=== PATIENT | male | born 1975 | race Caucasian/White ===

== ENCOUNTER 2018-03-12 10:38 | Inpatient (IN) | payer OTHER ==
[2018-03-12 14:12] VITALS: BMI 32.1
--- NOTE | 2018-03-12 14:20 | PN ---
S Progress Note Note: during admission pt appears very lethargic, sluggish, unable to keep his eyes open, slurred speech. Pt will be evaluated at [place] ED, report given to Dr. Miranda for evaluation. BP 130/60 pulse 123, temp 99.5. If pt is cleared by MD at [place], pt may return for detox treatment.
--- NOTE | 2018-03-12 23:59 | HP ---
"CIWA Score Nausea/Vomitin-Mild Nausea/No Vomiting Muscle Tremors: 4-Moderate,w/Arms Extend Anxiety: 4-Mod. Anxious/Guarded Agitation: 3 Paroxysmal Sweats: 3 (Increased facial moisture) Orientation: 1-Uncertain about Date Tacttile Disturbances: 0-None Auditory Disturbances: 0-None Visual Disturbances: 0-None Headache: 0-None Present CIWA-Ar Total Score: 16 - Admission Criteria [facility]ASAS Guidelines: Admission for Medically Managed Detox: Requires at least one of the followin. CIWA greater than 12 2. Seizures within the past 24 hours 3. Delirium tremens within the past 24 hours 4. Hallucinations within the past 24 hours 5. Acute intervention needed for co occurring medical disorder 6. Acute intervention needed for co occurring psychiatric disorder 7. Severe withdrawal that cannot be handled at a lower level of care (continued vomiting, continued diarrhea, abnormal vital signs) requiring intravenous medication and/or fluids 8. Patient presents the following: CIWA greater than 12 (Patient returns after being monitored in ED for acute alcohol intoxication.) Admission Criteria Met: Admission criteria met Admission ROS [facility] Chief Complaint: Here for alcohol and heroin withdrawal. Allergies/Adverse Reactions: Allergies Allergy/AdvReac Type Severity Reaction Status Date / Time No Known Allergies Allergy Verified 03/12/18 15:49 History of Present Illness: Patient returns from ED to [facility] for detox. Patient originally came for alcohol and opiate detox. DISK RECOATER pulled and noted that patient is currently on prescribed Suboxone. Patient states willing to stay on Suboxone and complete alcohol detox. Alcohol use began at age 7. Nicotine use began at age 13. Heroin use began at age 14. Relapsed. Using IVDU. Denies sharing needles or works. Denies overdose hx. Will admit for alcohol withdrawal symptoms and provide alcohol detox.. Will prescribe Suboxone , based on DISK RECOATER, but suggest a re-confirmation of dose / [facility] ([phone]) Hx mental health issues and on medications for bipolar, depression, and anxiety and on medications. Denies thoughts of harming self or others. Search Terms: Merritt Boyce, 1975 Search Date: 03/13/2018 12:57:07 AM The Drug Utilization Report below displays all of the controlled substance prescriptions, if any, that your patient has filled in the last twelve months. The information displayed on this report is compiled from pharmacy submissions to the Department, and accurately reflects the information as submitted by the pharmacies. This report was requested by: Amber Dc | Reference #: [id number] Others' Prescriptions Patient Name: Merritt Boyce Date: 1975 Address: [address] [place] [address] Sex: Male Rx Written Rx Dispensed Drug Quantity Days Supply Prescriber Name 02/22/2018 02/22/2018 suboxone 8 mg-2 mg sl film 30 30 Jurgen Kapadia MD 01/25/2018 01/26/2018 suboxone 8 mg-2 mg sl film 30 30 Jasiel Parmar MD 12/28/2017 12/28/2017 diphenoxylate-atropine 2.5-0.025 mg tablet 40 10 Jasiel Parmar MD Exam Limitations: No Limitations - Ebola screening Have you traveled outside of the country in the last 21 days: No Have you had contact with anyone from an Ebola affected area: No Have you been sick,other than usual withdrawal symptoms: No Do you have a fever: No - Review of Systems Constitutional: Chills, Diaphoresis, Changes in sleep (Difficulty falling and staying asleep. Uses Trazodone) EENT: reports: Nose Congestion Respiratory: reports: No Symptoms reported Cardiac: reports: No Symptoms Reported GI: reports: Nausea, Abdominal cramping : reports: Other (Slow urination/hesitentcy. Denies burning, pain, blood w/ urination) Musculoskeletal: reports: Back Pain (Chronic achy, and sharp back pain x years. No pain at this time.), Other (Generalized bone pain.) Integumentary: reports: Bruising (on both hands r/t injection drug use. Hands are painful 2/10.) Neuro: reports: Tingling (In fingertips.), Tremors Endocrine: reports: Increased Thirst Hematology: reports: No Symptoms Reported Psychiatric: reports: Judgement Intact, Agitated, Anxious, Depressed (Denies thoughts of harming self or others.) Patient History - Patient Medical History Hx Asthma: No Hx Chronic Obstructive Pulmonary Disease (COPD): No Hx Cardiac Disorders: No Hx Hypertension: No Hx Seizures: No Hx Diabetes: No Hx Gastrointestinal Disorders: No Hx Genitourinary Disorders: No Hx Sexually Transmitted Disorders: No Hx Renal Disease (ESRD): No Hx Human Immunodeficiency Virus (HIV): No (2018) - Patient Surgical History Past Surgical History: No - PPD History Previous Implant?: Yes Documented Results: Negative w/o proof Implanted On Prior [facility] Admission?: Yes PPD to be Administered?: Yes - Smoking Cessation Smoking history: Current every day smoker Have you smoked in the past 12 months: Yes Aproximately how many cigarettes per day: 20 Hx Chewing Tobacco Use: No Initiated information on smoking cessation: Yes 'Breaking Loose' booklet given: 03/13/18 - Substance & Tx. History Hx Alcohol Use: Yes Hx Substance Use: Yes Substance Use Type: Alcohol, Cocaine, Heroin Hx Substance Use Treatment: Yes (detox, rehab, Currently on Suboxone) - Substances Abused Alcohol Route: Oral Frequency: Daily Amount used: 22 CANS BEER Age of first use: 7 Date of Last Use: 03/12/18 Heroin Route: Injection Frequency: Daily Amount used: 16 BAGS Age of first use: 14 Date of Last Use: 03/12/18 Admission Physical Exam S - Vital Signs Vital Signs: Vital Signs - 24 hr 03/12/18 14:06 Temperature 99.5 F Pulse Rate 123 H Respiratory 18 Rate Blood Pressure 132/60 - Physical General Appearance: Yes: Mild Distress, Tremorous, Sweating, Anxious HEENTM: Yes: EOMI, Hearing grossly Normal, Normocephalic, HAROLDO (Pupils = 2 mm), Pharynx Normal Respiratory: Yes: Lungs Clear, Normal Breath Sounds, No Respiratory Distress Neck: Yes: No masses,lesions,Nodules, Supple Breast: Yes: Breast Exam Deferred Cardiology: Yes: Regular Rhythm, S1, S2, Tachycardia Abdominal: Yes: Soft, Increased Bowel Sounds, Protuberent (Increased abdominal adiposity) Genitourinary: Yes: Hesitency Back: Yes: Normal Inspection Musculoskeletal: Yes: full range of Motion, Gait Steady Extremities: Yes: Normal Capillary Refill, Normal Range of Motion, Tremors Neurological: Yes: bus monitor II-XII NML intact, Alert, Motor Strength 5/5, Normal Mood /Affect Integumentary: Yes: Normal Color, Dry, Warm, Other (increased erythema, warmth and swelling of dorsum of both hands. Radial pulses (+).) Lymphatic: Yes: Within Normal Limits - Diagnostic (1) Alcohol dependence with uncomplicated withdrawal Current Visit: Yes Status: Acute (2) Opioid dependence on agonist therapy Current Visit: Yes Status: Chronic Comment: On Suboxone and relapsed w/ illicit opiates (3) Nicotine dependence, uncomplicated Current Visit: Yes Status: Acute Qualifiers: Nicotine product type: cigarettes Qualified Code(s): F17.210 - Nicotine dependence, cigarettes, uncomplicated (4) Cellulitis Current Visit: Yes Status: Acute Qualifiers: Site of cellulitis: extremity Site of cellulitis of extremity: upper extremity Laterality: unspecified laterality Qualified Code(s): L03.119 - Cellulitis of unspecified part of limb Comment: Cellulitis dorsum of both hands Cleared for Admission [facility] - Detox or Rehab [facility] Level of Care: Medically Managed Detox Regimen/Protocol: Librium S Breath Alcohol Content Breath Alcohol Content: 0 Urine Drug Screen - Results Drug Screen Negative: No Urine Drug Screen Results: THC-Marijuana, OPI-Opiates, AMP-Amphetamines, MET- Methamphetamine, MDMA-Ecstasy, BZO-Benzodiazepines, MTD-Methadone, FEN-Fentanyl , BUP-Suboxone"
[2018-03-13] MEDS ORDERED: chlordiazePOXIDE HCL 25 MG CAPSULE PO ONE (00:58)
[2018-03-13] MEDS ORDERED: ACETAMINOPHEN 325 MG TABLET (FP) PO PRN (00:58)
[2018-03-13] MEDS ORDERED: LOPERAMIDE HCL 2 MG CAPSULE PO PRN (00:58)
[2018-03-13] MEDS ORDERED: MAGNESIUM HYDROX 2400MG/30ML ORAL SUSPENSION 30 ML CUP PO PRN (00:58)
[2018-03-13] MEDS ORDERED: MAGNESIUM CITRATE 300 ML BOTTLE PO PRN (00:58)
[2018-03-13] MEDS ORDERED: P-EPHED 60MG/TRIPROLIDI 2.5MG TABLET PO PRN (00:58)
[2018-03-13] MEDS ORDERED: chlordiazePOXIDE HCL 25 MG CAPSULE PO PRN (00:58)
[2018-03-13] MEDS ORDERED: MENTHOL/PHENOL 1 EACH UD MM PRN (00:58)
[2018-03-13] MEDS ORDERED: MAG HYDROX/AL HYDROX/SIMETH 30 ML UNIT-DOSE CUP PO PRN (00:58)
[2018-03-13] MEDS ORDERED: IBUPROFEN 400 MG TABLET (FP) PO PRN (00:58)
[2018-03-13] MEDS ORDERED: NICOTINE POLACRILEX 2 MG GUM BC PRN (00:58)
[2018-03-13] MEDS: chlordiazePOXIDE HCL 25 MG CAPSULE PO SCH ×4 (06:24→22:21)
[2018-03-13] MEDS: PRENATAL VITAMINS W/ FOLIC ACID TABLET (FP) PO SCH (11:56)
[2018-03-13] MEDS: NICOTINE 14 MG/24 HOURS TOPICAL PATCH TD SCH (11:56)
[2018-03-13] MEDS: CEPHALEXIN MONOHYDRATE 500 MG CAPSULE (UD) PO SCH ×2 (11:56→22:21)
[2018-03-13] MEDS: BUPRENORPHINE/NALOXONE 8 MG/2 MG FILM PACKET SL SCH (11:57)
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
[2018-03-13] MEDS: OLANZapine 5 MG TABLET PO SCH (14:13)
[2018-03-13] MEDS: GABAPENTIN 300 MG CAPSULE (FP) PO SCH ×2 (14:13→22:22)
--- NOTE | 2018-03-13 14:20 | PN ---
[facility] CIWA - CIWA Score Nausea/Vomitin-No Nausea/No Vomiting Muscle Tremors: 4-Moderate,w/Arms Extend Anxiety: 1-Mildly Anxious Agitation: 0-Normal Activity Paroxysmal Sweats: 3 Orientation: 2-Disoriented Date<2 days Tacttile Disturbances: 1-Very Mild Itch/Numbness Auditory Disturbances: 0-None Visual Disturbances: 3-Moderate Sensitivity Headache: 0-None Present CIWA-Ar Total Score: 14 S Progress Note (SOAP) Subjective: Body Aches, Interrupted Sleep, Tremors, Sweating. Objective: PATIENT A & O X 2 (UNCERTAIN ABOUT CURRENT DAY / DATE). IN NO ACUTE DISTRESS. 03/13/18 14:17 Vital Signs Temperature 99.3 F 03/13/18 13:25 Pulse Rate 93 H 03/13/18 13:25 Respiratory Rate 18 03/13/18 13:25 Blood Pressure 112/77 03/13/18 13:25 O2 Sat by Pulse Oximetry (%) ADMISSION LABS NOTED. PATIENT APPEAR LETHARGIC LYING IN BED. 03/13/18 14:23 Assessment: 03/13/18 14:24 WITHDRAWAL SYMPTOMS. LEUKOCYTOSIS. ELEVATED LIVER ENZYMES. CELLULITIS OF BILATERAL HANDS. 03/13/18 14:26 03/13/18 14:29 Plan: CONTINUE DETOX. INCREASE DAILY PO FLUID INTAKE. RE-CHECK CBC TOMORROW AM FOR ELEVATED ADMISSION WBC LEVEL (PATIENT CURRENTLY BEING TREATED WITH KEFLEX FOR CELLULITIS OF BILATERAL HANDS). HFP TOMORROW AM FOR ELEVATED ADMISSION LIVER ENZYME LEVELS. AMMONIA LEVEL FOR SIGNIFICANT LETHARGY.
[2018-03-13] MEDS ORDERED: MELATONIN 5 MG TABLETS PO PRN (22:00)
[2018-03-13] MEDS: traZODone HCL 100 MG TABLET (FP) PO SCH (23:12)
[2018-03-13] MEDS: THIAMINE HCL 100 MG TABLET (FP) PO SCH (23:13)
[2018-03-14] MEDS: chlordiazePOXIDE HCL 25 MG CAPSULE PO SCH ×4 (05:58→22:15)
[2018-03-14] MEDS: GABAPENTIN 300 MG CAPSULE (FP) PO SCH ×3 (05:58→22:14)
[2018-03-14] MEDS: CEPHALEXIN MONOHYDRATE 500 MG CAPSULE (UD) PO SCH ×2 (10:13→22:15)
[2018-03-14] MEDS: cloNIDine HCL 0.1 MG TABLET PO SCH (10:13)
[2018-03-14] MEDS: OLANZapine 5 MG TABLET PO SCH (10:13)
[2018-03-14] MEDS: PRENATAL VITAMINS W/ FOLIC ACID TABLET (FP) PO SCH (10:13)
[2018-03-14] MEDS: BUPRENORPHINE/NALOXONE 8 MG/2 MG FILM PACKET SL SCH (10:14)
[2018-03-14] MEDS: NICOTINE 14 MG/24 HOURS TOPICAL PATCH TD SCH (10:14)
[2018-03-14 10:51] LABS: HEMATOCRIT 40.7 % (35.4-49); HEMOGLOBIN 13.2 GM/dL (11.7-16.9); MCH 28.5 pg (25.7-33.7); MCHC 32.4 g/dl (32.0-35.9); MEAN PLT VOLUME 9.7 fl (7.5-11.1); PLATELET COUNT 171 K/MM3 (134-434); RBC 4.62 M/mm3 (4.00-5.60); RDW 14.4 % (11.9-15.9); WHITE BLOOD COUNT 9.8 K/mm3 (4.0-10.0)
[2018-03-14 11:05] LABS: ALBUMIN 3.2 g/dl (3.4-5.0); ALK PHOS 76 U/L (45-117); ANION GAP 8 MMOL/L (8-16); BILIRUBIN,TOTAL 0.6 mg/dL (0.2-1); BLOOD UREA NITROGEN 8 mg/dL (7-18); CALCIUM 8.4 mg/dL (8.5-10.1); CHLORIDE 99 mmol/L (98-107); CO2 28 mmol/L (21-32); CREATININE 0.7 mg/dL (0.55-1.3); GLUCOSE,RANDOM 114 mg/dL (74-106); POTASSIUM 3.5 mmol/L (3.5-5.1); SGOT/AST 113 U/L (15-37); SGPT/ALT 117 U/L (13-61); SODIUM 134 mmol/L (136-145)
--- NOTE | 2018-03-14 13:18 | PN ---
[facility] CIWA - CIWA Score Nausea/Vomitin Muscle Tremors: 3 Anxiety: 3 Agitation: 3 Paroxysmal Sweats: 3 Orientation: 0-Oriented Tacttile Disturbances: 0-None Auditory Disturbances: 0-None Visual Disturbances: 0-None Headache: 0-None Present CIWA-Ar Total Score: 14 S Progress Note (SOAP) Subjective: Backache, diarrhea, tremor, interrupted sleep Objective: 03/14/18 13:15 Last Vital Signs Temp Pulse Resp BP Pulse Ox 98 F 77 20 128/84 03/14/18 09:52 03/14/18 09:52 03/14/18 09:52 03/14/18 09:52 Laboratory Tests 03/14/18 03/14/18 03/14/18 07:50 07:50 07:50 WBC 9.8 RBC 4.62 Hgb 13.2 Hct 40.7 D MCV 88.0 MCH 28.5 MCHC 32.4 RDW 14.4 Plt Count 171 D MPV 9.7 Sodium 134 L Potassium 3.5 Chloride 99 Carbon Dioxide 28 Anion Gap 8 BUN 8 Creatinine 0.7 Creat Clearance w eGFR > 60 Random Glucose 114 H Calcium 8.4 L Total Bilirubin 0.6 AST 113 H ALT 117 H Alkaline Phosphatase 76 Ammonia Total Protein 7.0 Albumin 3.2 L RPR Titer Nonreactive 03/14/18 07:50 WBC RBC Hgb Hct MCV MCH MCHC RDW Plt Count MPV Sodium Potassium Chloride Carbon Dioxide Anion Gap BUN Creatinine Creat Clearance w eGFR Random Glucose Calcium Total Bilirubin AST ALT Alkaline Phosphatase Ammonia 69.95 H Total Protein Albumin RPR Titer Labs reviewed: ammonia level 69.95 Assessment: 03/14/18 13:16 Withdrawal symptoms Noted with hyperammonemia Plan: Continue detox Hyperammonemia: encouraged PO water intake, start lactulose 20gm PO TID, repeat ammonia level in 2 days
[2018-03-14] MEDS: LACTULOSE 20 GM/30 ML UDC (FOR ORAL USE ONLY) PO SCH ×2 (15:02→22:15)
[2018-03-14] MEDS: traZODone HCL 100 MG TABLET (FP) PO SCH (22:14)
[2018-03-14] MEDS: THIAMINE HCL 100 MG TABLET (FP) PO SCH (22:14)
[2018-03-15] MEDS: chlordiazePOXIDE 5 MG CAPSULE PO SCH ×4 (05:39→22:07)
[2018-03-15] MEDS: LACTULOSE 20 GM/30 ML UDC (FOR ORAL USE ONLY) PO SCH ×3 (05:39→22:08)
[2018-03-15] MEDS: GABAPENTIN 300 MG CAPSULE (FP) PO SCH ×3 (05:39→22:07)
[2018-03-15] MEDS: NICOTINE 14 MG/24 HOURS TOPICAL PATCH TD SCH (10:10)
[2018-03-15] MEDS: OLANZapine 5 MG TABLET PO SCH (10:11)
[2018-03-15] MEDS: PRENATAL VITAMINS W/ FOLIC ACID TABLET (FP) PO SCH (10:11)
[2018-03-15] MEDS: cloNIDine HCL 0.1 MG TABLET PO SCH (10:11)
[2018-03-15] MEDS: CEPHALEXIN MONOHYDRATE 500 MG CAPSULE (UD) PO SCH ×2 (10:11→22:07)
[2018-03-15] MEDS: BUPRENORPHINE/NALOXONE 8 MG/2 MG FILM PACKET SL SCH (10:12)
--- NOTE | 2018-03-15 13:47 | PN ---
BHS Progress Note (SOAP) Subjective: Body Aches, Tremors, Sweating, Anxious. Objective: PATIENT A & O X 3, OBSERVED AMBULATING ON UNIT. IN NO ACUTE DISTRESS. 03/15/18 13:44 Vital Signs Temperature 97.2 F L 03/15/18 09:59 Pulse Rate 112 H 03/15/18 09:59 Respiratory Rate 18 03/15/18 09:59 Blood Pressure 109/77 03/15/18 09:59 O2 Sat by Pulse Oximetry (%) Laboratory Tests 03/14/18 03/14/18 03/14/18 07:50 07:50 07:50 WBC 9.8 RBC 4.62 Hgb 13.2 Hct 40.7 D MCV 88.0 MCH 28.5 MCHC 32.4 RDW 14.4 Plt Count 171 D MPV 9.7 Sodium 134 L Potassium 3.5 Chloride 99 Carbon Dioxide 28 Anion Gap 8 BUN 8 Creatinine 0.7 Creat Clearance w eGFR > 60 Random Glucose 114 H Calcium 8.4 L Total Bilirubin 0.6 AST 113 H ALT 117 H Alkaline Phosphatase 76 Ammonia Total Protein 7.0 Albumin 3.2 L RPR Titer Nonreactive 03/14/18 07:50 WBC RBC Hgb Hct MCV MCH MCHC RDW Plt Count MPV Sodium Potassium Chloride Carbon Dioxide Anion Gap BUN Creatinine Creat Clearance w eGFR Random Glucose Calcium Total Bilirubin AST ALT Alkaline Phosphatase Ammonia 69.95 H Total Protein Albumin RPR Titer LABS NOTED. RESULTS OF REPEAT CBC NOTED. PATIENT'S WBC LEVEL NOTED TO BE WITHIN NORMAL LIMITS ON REPEAT CBC ASSESSMENT. 03/15/18 13:46 Assessment: 03/15/18 13:45 WITHDRAWAL SYMPTOMS. HYPERAMMONEMIA. Plan: CONTINUE DETOX. INCREASE DAILY PO FLUID INTAKE. ENCOURAGE AMBULATION. CONTINUE PO LACTULOSE.
[2018-03-15] MEDS: THIAMINE HCL 100 MG TABLET (FP) PO SCH (22:06)
[2018-03-15] MEDS: traZODone HCL 100 MG TABLET (FP) PO SCH (23:18)
[2018-03-16] MEDS ORDERED: chlordiazePOXIDE HCL 10 MG CAPSULE PO SCH (05:00)
[2018-03-16 06:06] VITALS: BP 92/61; PULSE 82; TEMP 97.7
[2018-03-16] MEDS: GABAPENTIN 300 MG CAPSULE (FP) PO SCH (07:34)
[2018-03-16] MEDS: LACTULOSE 20 GM/30 ML UDC (FOR ORAL USE ONLY) PO SCH (07:34)
[2018-03-16] MEDS: OLANZapine 5 MG TABLET PO SCH (09:11)
[2018-03-16] MEDS: PRENATAL VITAMINS W/ FOLIC ACID TABLET (FP) PO SCH (09:11)
[2018-03-16] MEDS: CEPHALEXIN MONOHYDRATE 500 MG CAPSULE (UD) PO SCH (09:11)
[2018-03-16] MEDS: BUPRENORPHINE/NALOXONE 8 MG/2 MG FILM PACKET SL SCH (09:12)
--- NOTE | 2018-03-16 17:49 | DS ---
[facility] Detox Discharge Summary Admission Date: 03/12/18 Discharge Date: 03/16/18 - History Present History: Alcohol Dependence, Cannabis Dependence, Opioid Dependence Additional Comments: PATIENT GOING TO [facility] ([place], [place]) FOR AFTERCARE. PRESCRIPTION FOR ANTIBIOTIC (KEFLEX) STARTED FOR TREATMENT OF CELLULITIS OF BILATERAL HANDS WHILE PATIENT WAS ADMITTED FOR DETOX GIVEN TO PATIENT TO TAKE WITH WITH FOR AFTERCARE FOLLOW-UP. PATIENT DENIES PAIN IN BILATERAL HANDS AND HAS FULL ROM OF BILATERAL HANDS AT THIS TIME. PATIENT WAS DISCHARGED FROM DETOX UNIT IN STABLE MEDICAL CONDITION. Pertinent Past History: Nicotine Dependence, Cellulitis of Bilateral Hands, Hyperammonemia. - Physical Exam Results Vital Signs: Vital Signs Temperature 97.7 F 03/16/18 06:06 Pulse Rate 82 03/16/18 06:06 Respiratory Rate 18 03/16/18 06:06 Blood Pressure 92/61 03/16/18 06:06 O2 Sat by Pulse Oximetry (%) Pertinent Admission Physical Exam Findings: WITHDRAWAL SYMPTOMS. Laboratory Tests 03/14/18 03/14/18 03/14/18 07:50 07:50 07:50 WBC 9.8 RBC 4.62 Hgb 13.2 Hct 40.7 D MCV 88.0 MCH 28.5 MCHC 32.4 RDW 14.4 Plt Count 171 D MPV 9.7 Sodium 134 L Potassium 3.5 Chloride 99 Carbon Dioxide 28 Anion Gap 8 BUN 8 Creatinine 0.7 Creat Clearance w eGFR > 60 Random Glucose 114 H Calcium 8.4 L Total Bilirubin 0.6 AST 113 H ALT 117 H Alkaline Phosphatase 76 Ammonia Total Protein 7.0 Albumin 3.2 L RPR Titer Nonreactive 03/14/18 07:50 WBC RBC Hgb Hct MCV MCH MCHC RDW Plt Count MPV Sodium Potassium Chloride Carbon Dioxide Anion Gap BUN Creatinine Creat Clearance w eGFR Random Glucose Calcium Total Bilirubin AST ALT Alkaline Phosphatase Ammonia 69.95 H Total Protein Albumin RPR Titer LABS NOTED. - Treatment Hospital Course: Detox Protocol Followed, Detoxed Safely, Responded well, Discharged Condition Good, Rehab Referral Accepted Patient has Accepted a Rehab Referral to: [facility] ([place], [place]). - Medication Discharge Medications: Ambulatory Orders Gabapentin 600 mg PO TID 03/12/18 Olanzapine 5 mg PO DAILY 03/12/18 Trazodone HCl 300 mg PO HS 03/12/18 cloNIDine HCL [Catapres -] 0.1 mg PO DAILY 03/12/18 Cephalexin [Keflex] 500 mg PO BID 7 Days #14 capsule 03/15/18 - Diagnosis (1) Alcohol dependence with uncomplicated withdrawal Status: Acute (2) Cellulitis Status: Acute Qualifiers: Site of cellulitis: extremity Site of cellulitis of extremity: upper extremity Laterality: unspecified laterality Qualified Code(s): L03.119 - Cellulitis of unspecified part of limb (3) Hyperammonemia Status: Acute (4) Marijuana dependence Status: Acute (5) Methamphetamine dependence Status: Acute (6) Substance induced mood disorder Status: Acute (7) Nicotine dependence, uncomplicated Status: Chronic Qualifiers: Nicotine product type: cigarettes Qualified Code(s): F17.210 - Nicotine dependence, cigarettes, uncomplicated (8) Opioid dependence Status: Acute Qualifiers: Substance use status: uncomplicated Qualified Code(s): F11.20 - Opioid dependence, uncomplicated - AMA Did Patient Leave Against Medical Advice: No
== END 2018-03-16 09:24 | disposition home or self-care (01) | DRG 775 ==
LOC: YASAS 10:38 → Y3N 23:09
PROC: HZ2ZZZZ Detoxification Services for Substance Abuse Treatment (ICD-10-PCS; principal; 2018-03-12)
DX: F10.230 Alcohol dependence with withdrawal, uncomplicated (principal); F12.20 Cannabis dependence, uncomplicated; F15.20 Other stimulant dependence, uncomplicated; F17.210 Nicotine dependence, cigarettes, uncomplicated; F19.24 Other psychoactive substance dependence with psychoactive substance-induced mood disorder; F31.9 Bipolar disorder, unspecified; F41.8 Other specified anxiety disorders; E72.20 Disorder of urea cycle metabolism, unspecified; L03.113 Cellulitis of right upper limb; L03.114 Cellulitis of left upper limb; D72.829 Elevated white blood cell count, unspecified; R94.5 Abnormal results of liver function studies
CPT/HCPCS: 36415; 80053; 82140; 85027; 86593; J0735

== ENCOUNTER 2018-03-12 15:17 | Emergency (ER) | payer OTHER ==
[2018-03-12 15:52] VITALS: BP 105/75; TEMP 98.4; BMI 23.7
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
[2018-03-12 18:16] LABS: BASO % 0.2 % (0-2.0); EOS % 1.1 % (0-4.5); HEMATOCRIT 34.8 % (35.4-49); HEMOGLOBIN 12.2 GM/dL (11.7-16.9); MCH 29.8 pg (25.7-33.7); MCHC 35.1 g/dl (32.0-35.9); MEAN CELL VOLUME 84.7 fl (80-96); MEAN PLT VOLUME 9.7 fl (7.5-11.1); MONO % 9.8 % (3.8-10.2); NEUT % 75.9 % (42.8-82.8); PLATELET COUNT 138 K/MM3 (134-434); RBC 4.11 M/mm3 (4.00-5.60); RDW 13.9 % (11.9-15.9); WHITE BLOOD COUNT 15.2 K/mm3 (4.0-10.0)
[2018-03-12] MEDS ORDERED: ACETAMINOPHEN 325 MG TABLET (FP) PO ONE (18:17)
--- NOTE | 2018-03-12 18:25 | PDOC ---
Attending Attestation - Resident Resident Name: Servando Alexandra - ED Attending Attestation I have performed the following: I have examined & evaluated the patient, The case was reviewed & discussed with the resident, I agree w/resident's findings & plan, Exceptions are as noted - HPI HPI: 03/12/18 18:20 42 M with h/o polysubstance abuse sent from [facility] rehab for medical clearance after pt showed up intoxicated. Pt initially went to [facility] to detox from heroin and ETOH. However, upon presentation, pt was noted to be lethargic and intoxicated. Pt was sent to ED for medical clearance. Pt is awake , alert in ED. He admits to using heroin, crystal meth, alcohol, and cigarettes this morning. Denies any acute complaints. He denies any chest pain, SOB, difficulty breathing, abdominal pain, back pain, headache, blurry vision, nausea, vomiting, diarrhea, constipation, dysuria, frequency, urgency. - Physicial Exam PE: 03/12/18 18:23 "GENERAL: Awake, alert, and fully oriented, in no acute distress. HEAD: No signs of trauma EYES: PERRLA, EOMI, sclera anicteric, conjunctiva clear ENT: Auricles normal inspection, hearing grossly normal, nares patent, oropharynx clear without exudates. Moist mucosa NECK: Nontender, no stepoffs, Normal ROM, supple, no lymphadenopathy, JVD, or masses LUNGS: Breath sounds equal, clear to auscultation bilaterally. No wheezes, and no crackles HEART: Regular rate and rhythm, normal S1 and S2, no murmurs, rubs or gallops ABDOMEN: Soft, nontender, normoactive bowel sounds. No guarding, no rebound. No masses EXTREMITIES: Normal range of motion, no edema. No clubbing or cyanosis. No cords, erythema, or tenderness NEUROLOGICAL: Cranial nerves II through XII intact. 5/5 strength and sensation in all extremities, Normal speech, normal gait, normal cerebellar function SKIN: + erythema to bilateral hands with puncture wounds, no fluctuance, no purulent drainage - Medical Decision Making 03/12/18 18:24 42 M sent from [facility] rehab for evaluation after presenting intoxicated. Pt now awake and sober in ED. Pt with benign exam other than mild cellulitis over bilateral dorsums of hands, likely 2/2 injecting heroin. - Labs, Utox - Keflex 03/12/18 19:31 Labs with mild transaminitis, bili 1.6 Pt with no abdominal pain, no RUQ tenderness on exam, suspect transaminitis is 2 /2 drug use 03/12/18 20:18 Pt reassessed - vitals now normalized Pt clinically sober, denies SI/HI/AVH. Will DC back to [facility] Pt is well appearing, with normal vitals. Clinically stable for DC at this time. I discussed the physical exam findings, ancillary test results and final diagnoses with the patient. I answered all of the patient's questions. The patient was satisfied with the care received and felt comfortable with the discharge plan and treatment plan. The patient agrees to follow up with the primary care physician within 24-72 hours.
[2018-03-12] MEDS ORDERED: CEPHALEXIN MONOHYDRATE 500 MG CAPSULE (UD) PO ONE (18:30)
[2018-03-12] MEDS ORDERED: ACETAMINOPHEN 325 MG TABLET (FP) ONE (18:51)
[2018-03-12] MEDS ORDERED: CEPHALEXIN MONOHYDRATE 500 MG CAPSULE (UD) ONE (18:52)
[2018-03-12 19:02] LABS: ALBUMIN 3.8 g/dl (3.4-5.0); ALK PHOS 87 U/L (45-117); ANION GAP 11 MMOL/L (8-16); BILIRUBIN,TOTAL 1.6 mg/dL (0.2-1); BLOOD UREA NITROGEN 20 mg/dL (7-18); CALCIUM 8.1 mg/dL (8.5-10.1); CHLORIDE 92 mmol/L (98-107); CO2 28 mmol/L (21-32); CREATININE 1.1 mg/dL (0.55-1.3); GLUCOSE,RANDOM 105 mg/dL (74-106); POTASSIUM 3.8 mmol/L (3.5-5.1); SGOT/AST 291 U/L (15-37); SGPT/ALT 150 U/L (13-61); SODIUM 130 mmol/L (136-145); TOT PROT 7.2 g/dl (6.4-8.2)
[2018-03-12 20:08] LABS: COCAINE, UR NEGATIVE ng/ml (CUTOFF=300); METHADONE, UR NEGATIVE ng/ml (CUTOFF=300); PHENCYCLIDINE,URINE NEGATIVE ng/ml (CUTOFF=25); URINE BARBITURATES NEGATIVE ng/ml (CUTOFF=200)
[2018-03-12 20:10] LABS: URINE AMPHETAMINES POSITIVE ng/ml (CUTOFF=500)
[2018-03-12 20:11] LABS: URINE BENZODIAZEPINES POSITIVE ng/ml (CUTOFF=200)
[2018-03-12 20:12] LABS: OPIATES, URI POSITIVE ng/ml (CUTOFF=300)
[2018-03-12 20:17] VITALS: PULSE 96
--- NOTE | 2018-03-13 08:42 | EKG ---
Test Reason : Blood Pressure : / mmHG Vent. Rate : 119 BPM Atrial Rate : 119 BPM P-R Int : 146 ms QRS Dur : 080 ms QT Int : 318 ms P-R-T Axes : 046 058 037 degrees QTc Int : 447 ms SINUS TACHYCARDIA OTHERWISE NORMAL ECG NO PREVIOUS ECGS AVAILABLE Confirmed by ÁLVARO LAND, FRANCOIS ([id number]) on 03/13/2018 8:42:15 AM Referred By: Confirmed By:FRANCOIS REA MD
== END 2018-03-12 21:23 | disposition home or self-care (01) ==
LOC: JER 15:17
DX: F11.10 Opioid abuse, uncomplicated (principal); F10.10 Alcohol abuse, uncomplicated; F15.10 Other stimulant abuse, uncomplicated; F13.10 Sedative, hypnotic or anxiolytic abuse, uncomplicated; Y90.9 Presence of alcohol in blood, level not specified
CPT/HCPCS: 36415; 80053; 80307; 85025; 93005; 93010; 99282-25

== ENCOUNTER 2019-11-21 12:13 | Inpatient (IN) | payer OTHER ==
--- NOTE | 2019-11-21 12:37 | BHS.RME ---
Substance Use & Tx History - Substance Use History Heroin Substance amount: 8-10 bags Frequency of use: Daily Substance route: Injection (ex: intravenous or skin popping) Date of Last Use: 11/21/19 (started age 12) Marijuana/Hashish Substance amount: 3 blunts Frequency of use: Daily Substance route: Smoking Date of Last Use: 11/21/19 (started age 11) Nicotine Substance amount: 1 pack Frequency of use: Daily Substance route: Smoking Date of Last Use: 11/21/19 (started age 7) - Last Treatment Date of last treatment: 08/10- completed detox Treatment type: Substance Use Disorder (JACOB) Where was last treatment: Detox Physical/Psych/Mental Status - Behavior General Behavior: Increased activity (restlessness, agitation) Eye Contact: Normal - Cooperativeness Cooperativeness: Cooperative - Thinking Thought Processes: Tight, Logical, Goal Directed - Physical Health Problems Is patient presently having any pain?: No Does patient presently have any injuries (include location): No Does patient currently have a fever: No Is patient : No COWS - Scale Resting Pulse: 1= [place] 81-100 Sweatin= Chills/Flushing Restless Observation: 3= Extraneous Movement Pupil Size: 1= Pupils >than Normal Bone or Joint Aches: 1= Mild Discomfort Runny Nose/ Eye Tearin= Runny Nose/Eyes GI Upset > 30mins: 2= Nausea/Diarrhea Tremor Observation: 1= Tremor [place], Not Seen Yawning Observation: 1= 1-2x During Session Anxiety or Irritability: 0= None Goose Flesh Skin: 0=Smooth Skin COWS Score: 13
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
[2019-11-21] MEDS ORDERED: MAGNESIUM CITRATE 300 ML BOTTLE PO PRN (15:04)
[2019-11-21] MEDS ORDERED: IBUPROFEN 400 MG TABLET (FP) PO PRN (15:04)
[2019-11-21] MEDS ORDERED: ACETAMINOPHEN 325 MG TABLET (FP) PO PRN ×2 (15:04)
[2019-11-21] MEDS ORDERED: ONDANSETRON *ODT* 4 MG TABLET SL PRN (15:04)
[2019-11-21] MEDS ORDERED: MENTHOL/PHENOL 1 EACH UD MM PRN (15:04)
[2019-11-21] MEDS ORDERED: METHADONE HCL 10 MG TABLET (FOR DETOX USE ONLY) PO ONE (15:04)
[2019-11-21] MEDS ORDERED: MAGNESIUM HYDROX 2400MG/30ML ORAL SUSPENSION 30 ML CUP PO PRN (15:04)
[2019-11-21] MEDS ORDERED: BISMUTH SUBSALICYLATE 262 MG/15 ML BTL PO PRN (15:04)
[2019-11-21] MEDS ORDERED: MAG HYDROX/AL HYDROX/SIMETH 30 ML UNIT-DOSE CUP PO PRN (15:04)
[2019-11-21] MEDS ORDERED: NICOTINE POLACRILEX 2 MG GUM BUC PRN (15:04)
[2019-11-21] MEDS ORDERED: cloNIDine HCL 0.1 MG TABLET PO PRN (15:04)
[2019-11-21] MEDS ORDERED: METHOCARBAMOL 500 MG TABLET PO PRN (15:04)
[2019-11-21 16:08] VITALS: BMI 24.1
[2019-11-21] MEDS: NICOTINE 21 MG/24 HOURS TOPICAL PATCH TD SCH (17:29)
[2019-11-21] MEDS: hydrOXYzine PAMOATE 25 MG CAPSULE (FP) PO SCH ×2 (17:30→22:27)
[2019-11-21 20:06] LABS: HEMATOCRIT 36.4 % (35.4-49); HEMOGLOBIN 12.1 GM/dL (11.7-16.9); MCH 29.5 pg (25.7-33.7); MCHC 33.3 g/dl (32.0-35.9); MEAN CELL VOLUME 88.4 fl (80-96); MEAN PLT VOLUME 10.5 fl (7.5-11.1); PLATELET COUNT 175 K/MM3 (134-434); RBC 4.12 M/mm3 (4.00-5.60); RDW 13.9 % (11.9-15.9); WHITE BLOOD COUNT 7.3 K/mm3 (4.0-10.0)
[2019-11-21 20:21] LABS: ALBUMIN 3.4 g/dl (3.4-5.0); BILIRUBIN,TOTAL 0.7 mg/dL (0.2-1); CALCIUM 8.4 mg/dL (8.5-10.1); CREATININE 0.7 mg/dL (0.55-1.3); POTASSIUM 3.5 mmol/L (3.5-5.1); TOT PROT 6.7 g/dl (6.4-8.2)
[2019-11-21] MEDS: THIAMINE HCL 100 MG TABLET (FP) PO SCH (22:27)
[2019-11-21] MEDS: MELATONIN 5 MG TABLETS PO SCH (22:27)
[2019-11-22] MEDS: hydrOXYzine PAMOATE 25 MG CAPSULE (FP) PO SCH ×2 (07:18→10:22)
[2019-11-22] MEDS ORDERED: METHADONE HCL 10 MG TABLET (FOR DETOX USE ONLY) ONE (09:40)
[2019-11-22] MEDS ORDERED: METHADONE HCL 5 MG TABLET (FOR DETOX USE ONLY) ONE (09:41)
--- NOTE | 2019-11-22 09:44 | EKG ---
Test Reason : Blood Pressure : / mmHG Vent. Rate : 075 BPM Atrial Rate : 075 BPM P-R Int : 144 ms QRS Dur : 082 ms QT Int : 376 ms P-R-T Axes : 056 068 063 degrees QTc Int : 419 ms NORMAL SINUS RHYTHM NORMAL ECG WHEN COMPARED WITH ECG OF 11-AUG-2019 20:19, FUSION COMPLEXES ARE NO LONGER PRESENT QT HAS SHORTENED Confirmed by Danyel Uriarte ([id number]) on 11/22/2019 9:43:39 AM Referred By: Confirmed By:Danyel Uriarte
[2019-11-22] MEDS ORDERED: METHADONE (DETOX) 20 MG, METHADONE (DETOX) 5 MG PO ONE (10:00)
[2019-11-22] MEDS: PRENATAL VITAMINS W/ FOLIC ACID TABLET (FP) PO SCH (10:22)
[2019-11-22] MEDS: NICOTINE 21 MG/24 HOURS TOPICAL PATCH TD SCH (10:22)
--- NOTE | 2019-11-22 12:08 | PN ---
BHS COWS - Scale Resting Pulse: 0= [place] 80 or Below Sweatin= No chills or Flushing Restless Observation: 0= Sits Still Pupil Size: 1= Pupils >than Normal Bone or Joint Aches: 2= Severe Diffuse Aches Runny Nose/ Eye Tearin= None GI Upset > 30mins: 2= Nausea/Diarrhea (reject imodium) Tremor Observation of Outstretched Hands: 2= Slight Tremor Visible Yawning Observation: 0= None Anxiety or Irritability: 2=Irritable/Anxious Goose Flesh Skin: 3=Piloerection COWS Score: 12 BHS Progress Note (SOAP) Subjective: 44 years old male was admitted on 11/21/19 for opiate withdrawal sx management treating with methadone detox regiment reports diarrhea reject imodium restlessness anxiousness increase vistaril to 50 mg po adding valium prn adjacent to methadone regiment Objective: 11/22/19 12:09 Vital Signs - 24 hr 11/21/19 11/21/19 11/21/19 16:04 16:26 20:39 Temperature 97.6 F 97.1 F L 98.4 F Pulse Rate 60 62 80 Respiratory 12 18 18 Rate Blood Pressure 96/56 L 96/55 L 102/66 O2 Sat by Pulse 95 Oximetry (%) 11/22/19 08:25 Temperature 97.9 F Pulse Rate 77 Respiratory 16 Rate Blood Pressure 100/62 O2 Sat by Pulse Oximetry (%) Laboratory Tests 11/21/19 11/21/19 11/21/19 15:10 15:10 15:10 WBC 7.3 RBC 4.12 Hgb 12.1 Hct 36.4 MCV 88.4 MCH 29.5 MCHC 33.3 RDW 13.9 D Plt Count 175 MPV 10.5 D Sodium 139 Potassium 3.5 Chloride 106 Carbon Dioxide 27 Anion Gap 7 L BUN 12.0 Creatinine 0.7 Est GFR (CKD-EPI)AfAm 132.09 Est GFR (CKD-EPI)NonAf 113.97 Random Glucose 102 Calcium 8.4 L Total Bilirubin 0.7 AST 32 ALT 45 Alkaline Phosphatase 68 Total Protein 6.7 Albumin 3.4 Syphilis Serology Non-reactive 11/22/19 12:09 covid pending Assessment: 11/22/19 12:09 opiate withdrawal Plan: methadone regiment
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
[2019-11-22] MEDS ORDERED: diazePAM 5 MG TABLET PO ONE (13:30)
[2019-11-22] MEDS: hydrOXYzine PAMOATE 50 MG CAPSULE (FP) PO SCH ×3 (14:00→23:32)
[2019-11-22] MEDS: MELATONIN 5 MG TABLETS PO SCH (22:22)
[2019-11-22] MEDS: traZODone HCL 100 MG TABLET (FP) PO SCH (22:22)
[2019-11-22] MEDS: diazePAM 5 MG TABLET PO PRN (22:22)
[2019-11-22] MEDS: GABAPENTIN 400 MG CAPSULE PO SCH (22:22)
[2019-11-22] MEDS: THIAMINE HCL 100 MG TABLET (FP) PO SCH (22:22)
[2019-11-23] MEDS: hydrOXYzine PAMOATE 50 MG CAPSULE (FP) PO SCH ×4 (07:01→23:16)
[2019-11-23] MEDS ORDERED: METHADONE HCL 10 MG TABLET (FOR DETOX USE ONLY) PO ONE (10:00)
[2019-11-23] MEDS: GABAPENTIN 400 MG CAPSULE PO SCH ×2 (10:15→22:09)
[2019-11-23] MEDS: PRENATAL VITAMINS W/ FOLIC ACID TABLET (FP) PO SCH (10:15)
[2019-11-23] MEDS: OLANZapine 10 MG TABLET PO SCH (10:15)
[2019-11-23] MEDS: NICOTINE 21 MG/24 HOURS TOPICAL PATCH TD SCH (10:16)
--- NOTE | 2019-11-23 11:26 | PN ---
S CIWA - CIWA Score Nausea/Vomitin Muscle Tremors: 3 Anxiety: 3 Agitation: 3 Paroxysmal Sweats: No Perspiration Orientation: 0-Oriented Tacttile Disturbances: 1-Very Mild Itch/Numbness Auditory Disturbances: 0-None Visual Disturbances: 0-None Headache: 2-Mild CIWA-Ar Total Score: 14 BHS COWS - Scale Resting Pulse: 1= [place] 81-100 Sweatin= No chills or Flushing Restless Observation: 0= Sits Still Pupil Size: 1= Pupils >than Normal Bone or Joint Aches: 2= Severe Diffuse Aches Runny Nose/ Eye Tearin= Nasal Congestion GI Upset > 30mins: 2= Nausea/Diarrhea Tremor Observation of Outstretched Hands: 2= Slight Tremor Visible Yawning Observation: 1= 1-2x During Session Anxiety or Irritability: 2=Irritable/Anxious Goose Flesh Skin: 0=Smooth Skin COWS Score: 12 S Progress Note (SOAP) Subjective: alert,irritable,anxious,interrupted sleep,pain in the body and back,interrupted sleep, Objective: 11/23/19 11:24 Vital Signs Temperature 96.9 F L 11/23/19 08:30 Pulse Rate 88 11/23/19 08:30 Respiratory Rate 16 11/23/19 08:30 Blood Pressure 115/69 11/23/19 08:30 O2 Sat by Pulse Oximetry (%) 97 11/22/19 20:18 Laboratory Last Values WBC 7.3 K/mm3 (4.0-10.0) 11/21/19 15:10 RBC 4.12 M/mm3 (4.00-5.60) 11/21/19 15:10 Hgb 12.1 GM/dL (11.7-16.9) 11/21/19 15:10 Hct 36.4 % (35.4-49) 11/21/19 15:10 MCV 88.4 fl (80-96) 11/21/19 15:10 MCH 29.5 pg (25.7-33.7) 11/21/19 15:10 MCHC 33.3 g/dl (32.0-35.9) 11/21/19 15:10 RDW 13.9 % (11.9-15.9) D 11/21/19 15:10 Plt Count 175 K/MM3 (134-434) 11/21/19 15:10 MPV 10.5 fl (7.5-11.1) D 11/21/19 15:10 Sodium 139 mmol/L (136-145) 11/21/19 15:10 Potassium 3.5 mmol/L (3.5-5.1) 11/21/19 15:10 Chloride 106 mmol/L (98-107) 11/21/19 15:10 Carbon Dioxide 27 mmol/L (21-32) 11/21/19 15:10 Anion Gap 7 MMOL/L (8-16) L 11/21/19 15:10 BUN 12.0 mg/dL (7-18) 11/21/19 15:10 Creatinine 0.7 mg/dL (0.55-1.3) 11/21/19 15:10 Est GFR (CKD-EPI)AfAm 132.09 11/21/19 15:10 Est GFR (CKD-EPI)NonAf 113.97 11/21/19 15:10 Random Glucose 102 mg/dL (74-106) 11/21/19 15:10 Calcium 8.4 mg/dL (8.5-10.1) L 11/21/19 15:10 Total Bilirubin 0.7 mg/dL (0.2-1) 11/21/19 15:10 AST 32 U/L (15-37) 11/21/19 15:10 ALT 45 U/L (13-61) 11/21/19 15:10 Alkaline Phosphatase 68 U/L (45-117) 11/21/19 15:10 Total Protein 6.7 g/dl (6.4-8.2) 11/21/19 15:10 Albumin 3.4 g/dl (3.4-5.0) 11/21/19 15:10 Syphilis Serology Non-reactive (NONREACTIVE) 11/21/19 15:10 COVID-19 (CHERIE) Not detected (Not Detected) 11/21/19 16:00 Assessment: 11/23/19 11:25 withdrawal symptom Plan: continue detox methadone and valium regimen
--- NOTE | 2019-11-23 12:55 | PN ---
S Progress Note Note: mr pascual requests a and d ointment for his IV sites both inner aspects of arms no swell no redness hardness on palpation a and d ointment ordered
[2019-11-23] MEDS ORDERED: LOPERAMIDE HCL 2 MG CAPSULE PO PRN (13:31)
--- NOTE | 2019-11-23 13:31 | PN ---
Darell Progress Note Note: spoke with patient's pharmacist ,patient is on xarelto 20 mgs po dailly ordered,to d/c motirni and pepto bismal,imodium 4 mgs po q 6hrs prn for diarrhea
--- NOTE | 2019-11-23 14:18 | PN ---
S Progress Note Note: patient also has history of seizue on keppra 750 mgs po bid
[2019-11-23] MEDS: VITAMINS A AND D TOPICAL OINTMENT 60 GM TUBE TP SCH ×2 (14:25→19:00)
[2019-11-23] MEDS: RIVAROXABAN 20 MG TABLET PO SCH (17:48)
[2019-11-23] MEDS ORDERED: levETIRAcetam 500 MG TABLET (FP) PO SCH (22:00)
[2019-11-23] MEDS: THIAMINE HCL 100 MG TABLET (FP) PO SCH (22:09)
[2019-11-23] MEDS: traZODone HCL 100 MG TABLET (FP) PO SCH (22:09)
[2019-11-23] MEDS: MELATONIN 5 MG TABLETS PO SCH (22:11)
[2019-11-23] MEDS: diazePAM 5 MG TABLET PO PRN (23:53)
[2019-11-24] MEDS: hydrOXYzine PAMOATE 50 MG CAPSULE (FP) PO SCH ×4 (06:47→23:05)
[2019-11-24] MEDS: VITAMINS A AND D TOPICAL OINTMENT 60 GM TUBE TP SCH ×4 (06:47→18:11)
[2019-11-24] MEDS ORDERED: METHADONE HCL 10 MG TABLET (FOR DETOX USE ONLY) ONE (09:02)
[2019-11-24] MEDS ORDERED: METHADONE HCL 5 MG TABLET (FOR DETOX USE ONLY) ONE (09:03)
[2019-11-24] MEDS ORDERED: METHADONE (DETOX) 10 MG, METHADONE (DETOX) 5 MG PO ONE (10:00)
[2019-11-24] MEDS: OLANZapine 10 MG TABLET PO SCH (10:22)
[2019-11-24] MEDS: PRENATAL VITAMINS W/ FOLIC ACID TABLET (FP) PO SCH (10:23)
[2019-11-24] MEDS: GABAPENTIN 400 MG CAPSULE PO SCH (10:23)
[2019-11-24] MEDS: NICOTINE 21 MG/24 HOURS TOPICAL PATCH TD SCH (10:23)
--- NOTE | 2019-11-24 10:39 | PN ---
[facility] CIWA - CIWA Score Nausea/Vomitin-No Nausea/No Vomiting Muscle Tremors: 2 Anxiety: 2 Agitation: 2 Paroxysmal Sweats: No Perspiration Orientation: 0-Oriented Tacttile Disturbances: 1-Very Mild Itch/Numbness Auditory Disturbances: 0-None Visual Disturbances: 0-None Headache: 2-Mild CIWA-Ar Total Score: 9 BHS COWS - Scale Resting Pulse: 1= [place] 81-100 Sweatin= No chills or Flushing Restless Observation: 0= Sits Still Pupil Size: 0= Normal to Room Light Bone or Joint Aches: 2= Severe Diffuse Aches Runny Nose/ Eye Tearin= Nasal Congestion GI Upset > 30mins: 1= Stomach Cramp Tremor Observation of Outstretched Hands: 2= Slight Tremor Visible Yawning Observation: 0= None Anxiety or Irritability: 2=Irritable/Anxious Goose Flesh Skin: 0=Smooth Skin COWS Score: 9 S Progress Note (SOAP) Subjective: alert,irritable,anxious,interrupted sleep,tremor,pain in the body and back Objective: 11/24/19 16:16 Vital Signs Temperature 97.8 F 11/24/19 12:32 Pulse Rate 98 H 11/24/19 12:32 Respiratory Rate 20 11/24/19 12:32 Blood Pressure 100/70 11/24/19 12:32 O2 Sat by Pulse Oximetry (%) 99 11/24/19 12:32 Laboratory Last Values WBC 7.3 K/mm3 (4.0-10.0) 11/21/19 15:10 RBC 4.12 M/mm3 (4.00-5.60) 11/21/19 15:10 Hgb 12.1 GM/dL (11.7-16.9) 11/21/19 15:10 Hct 36.4 % (35.4-49) 11/21/19 15:10 MCV 88.4 fl (80-96) 11/21/19 15:10 MCH 29.5 pg (25.7-33.7) 11/21/19 15:10 MCHC 33.3 g/dl (32.0-35.9) 11/21/19 15:10 RDW 13.9 % (11.9-15.9) D 11/21/19 15:10 Plt Count 175 K/MM3 (134-434) 11/21/19 15:10 MPV 10.5 fl (7.5-11.1) D 11/21/19 15:10 Sodium 139 mmol/L (136-145) 11/21/19 15:10 Potassium 3.5 mmol/L (3.5-5.1) 11/21/19 15:10 Chloride 106 mmol/L (98-107) 11/21/19 15:10 Carbon Dioxide 27 mmol/L (21-32) 11/21/19 15:10 Anion Gap 7 MMOL/L (8-16) L 11/21/19 15:10 BUN 12.0 mg/dL (7-18) 11/21/19 15:10 Creatinine 0.7 mg/dL (0.55-1.3) 11/21/19 15:10 Est GFR (CKD-EPI)AfAm 132.09 11/21/19 15:10 Est GFR (CKD-EPI)NonAf 113.97 11/21/19 15:10 Random Glucose 102 mg/dL (74-106) 11/21/19 15:10 Calcium 8.4 mg/dL (8.5-10.1) L 11/21/19 15:10 Total Bilirubin 0.7 mg/dL (0.2-1) 11/21/19 15:10 AST 32 U/L (15-37) 11/21/19 15:10 ALT 45 U/L (13-61) 11/21/19 15:10 Alkaline Phosphatase 68 U/L (45-117) 11/21/19 15:10 Total Protein 6.7 g/dl (6.4-8.2) 11/21/19 15:10 Albumin 3.4 g/dl (3.4-5.0) 11/21/19 15:10 Syphilis Serology Non-reactive (NONREACTIVE) 11/21/19 15:10 COVID-19 (CHERIE) Not detected (Not Detected) 11/21/19 16:00 Assessment: 11/24/19 16:16 withdrawal symptom Plan: continue detox methadone and valium regimen,psychiatric reevaluation
--- NOTE | 2019-11-24 13:44 | PN ---
[facility] Progress Note Note: patient has been on Xarelto 20 mgs po daily for dvt left leg and pulmonary embolism for last 2 months and history of seizure on keppra 750 mgs po bid, ordered,seizure precaution,also neuropathy on neurontin 600 mgs po tid ordered
--- NOTE | 2019-11-24 15:17 | PN ---
Psychiatric Progress Note Vital Signs: Vital Signs Period Temp Pulse Resp BP Sys/Escalante Pulse Ox Last 24 Hr 97.3 F-98.4 F 68-98 18-20 96-114/61-70 98-99 Date of Session: 11/24/19 Chief Complaint:: " I want to go over my medications" HPI: Patient admitted to for cannabis, nicotine, and opioid dependence. Consultation ordered due to request for medication evaluation. ROS: Patient is alert +oriented X3. Current Medications: Active Medications Generic Name Dose Route Start Last Admin Trade Name Freq PRN Reason Stop Dose Admin Acetaminophen 650 mg 11/21/19 15:04 Tylenol - PO Q6H PRN PAIN LEVEL 4 - 6 Acetaminophen 650 mg 11/21/19 15:04 Tylenol - PO Q6H PRN FEVER Al Hydroxide/Mg Hydroxide 30 ml 11/21/19 15:04 Mylanta Oral Suspension - PO Q6H PRN DYSPEPSIA Buspirone HCl 5 mg 11/24/19 14:30 Buspar - PO TID ESTEBAN Diazepam 5 mg 11/24/19 00:01 Valium - PO 11/25/19 23:59 Q6H PRN WITHDRAWAL(CONT SUBST) Eucalyptus/Menthol/Phenol/Sorbitol 1 each 11/21/19 15:04 Cepastat Lozenge - MM 11/27/19 15:04 Q4H PRN SORE THROAT Gabapentin 600 mg 11/24/19 14:00 Neurontin - PO TID [facility] Hydroxyzine Pamoate 50 mg 11/22/19 13:30 11/24/19 12:30 Vistaril - PO Not Given Q6HPO ESTEBAN Levetiracetam 250 mg/ 750 mg 11/23/19 22:00 11/24/19 10:23 Levetiracetam 500 mg PO 750 mg BID [facility] Administration Loperamide HCl 4 mg 11/23/19 13:31 Imodium - PO Q6H PRN DIARRHEA Magnesium Citrate 300 ml 11/21/19 15:04 Citroma - PO Q48H PRN CONSTIPATION Magnesium Hydroxide 30 ml 11/21/19 15:04 Milk Of Magnesia - PO PRN PRN CONSTIPATION Melatonin 5 mg 11/21/19 22:00 11/23/19 22:11 Melatonin PO Not Given HS ESTEBAN Methadone HCl 5 mg 11/26/19 06:00 Dolophine - PO 11/26/19 06:01 ONCE@0600 ONE Methadone HCl 10 mg 11/25/19 10:00 Dolophine - PO 11/25/19 10:01 ONCE ONE Methocarbamol 500 mg 11/21/19 15:04 11/22/19 01:08 Robaxin - PO 11/27/19 15:04 500 mg Q6H PRN Administration MUSCLE SPASMS Nicotine 21 mg 11/21/19 15:15 11/24/19 10:23 Nicoderm Patch - TD 21 mg DAILY ESTEBAN Administration Nicotine Polacrilex 2 mg 11/21/19 15:04 Nicorette Gum - BUC Q2H PRN NICOTINE REPLACEMENT RX Olanzapine 20 mg 11/23/19 10:00 11/24/19 10:22 Zyprexa - PO 20 mg DAILY ESTEBAN Administration Ondansetron HCl 4 mg 11/21/19 15:04 Zofran Odt - SL Q8H PRN Nausea/Vomiting Multivit/Folic Acid/Iron 1 tab 11/22/19 10:00 11/24/19 10:23 Vitamins (Sjr) - PO 1 tab DAILY ESTEBAN Administration Rivaroxaban 20 mg 11/23/19 18:00 11/23/19 17:48 Xarelto PO 20 mg DAILY@1800 ESTEBAN Administration Thiamine HCl 100 mg 11/21/19 22:00 11/23/19 22:09 Vitamin B1 - PO 100 mg HS ESTEBAN Administration Trazodone HCl 200 mg 11/22/19 22:00 11/23/19 22:09 Desyrel - PO 200 mg HS ESTEBAN Administration Vitamin A/Vitamin D 1 applic 11/23/19 13:00 11/24/19 13:30 Vitamin A & D Top Oint - TP Not Given Q6H [facility] Medication(s) Change(s): Yes. 1) Will d/c Zyprexa 20mg daily + Gabapentin 300mg BID. 2). Will order Haldol 5mg BID + Buspar 5mg TID. 3). Gabapentin 600mg TID to be ordered by Dr. Calloway for neuropathy. Current Side Effect: No Lab tests ordered: No Lab tests reviewed: Yes Provider note:: Chart reviewed. Mr. Boyce is requesting additional gabapentin and is asking for technical writer and editor to review his psychotropic medications. Yesterday patient reported taking zyprexa 20mg daily + Gabapentin 600mg TID ( but was unsure) + Buspar ( unsure) + Trazodone 300mg HS. Train Control Electronic Technician attempted to contact [facility] pharmacy yesterday at [phone] but was unsuccessful. Train Control Electronic Technician contacted [facility] again today and was able to speak pharmacy staff. As per pharmacy staff patient received a two week prescription of the following medication: Bupar 5mg TID + Zoloft 100mg daily + Trazodone 100mg HS + Gabapentin 600mg TID + Haldol 5mg BID on 11/18/19. Patient informed technical writer and editor that he received the above medications from [facility] after discharge on 11/18/19. Patient then stated, " Oh i was taking zyprexa but i want to be back on all the medications that [facility] gave me." Medications to be adjusted (please review medication section). Patient also perseverating on receiving klonopin as he reports being prescribed klonopin from [facility]. Patient informed that pharmacy did not mention klonopin to technical writer and editor. Train Control Electronic Technician then informed patient that he is currently prescribed Valium 5mg qh6. Patient satisifed and receptive to feedback. Total face to face time:: 25 Mental Status Exam - Mental Status Exam Alert and Oriented to: Time, Place, Person Cognitive Function: Good Patient Appearance: Well Groomed Mood: Euthymic Affect: Mood Congruent Patient Behavior: Appropriate, Cooperative Speech Pattern: Appropriate Voice Loudness: Normal Thought Process: Goal Oriented Thought Disorder: Not Present Hallucinations: Denies Suicidal Ideation: Denies Homicidal Ideation: Denies Insight/Judgement: Poor Sleep: Fair Appetite: Fair Muscle strength/Tone: Normal Gait/Station: Normal Psychiatric Treatment Plan - Problem List (1) Alcohol dependence with uncomplicated withdrawal Comment: .. (2) Cannabis dependence Comment: 1. Substance use disorder education (3) Opioid dependence Qualifiers: Substance use status: uncomplicated Qualified Code(s): F11.20 - Opioid dependence, uncomplicated (4) Substance-induced sleep disorder Comment: .. (5) Bipolar disorder Comment: ..
[2019-11-24] MEDS: busPIRone HCL 5 MG TABLET PO SCH ×2 (15:56→21:53)
[2019-11-24] MEDS: GABAPENTIN 300 MG CAPSULE PO SCH ×2 (15:56→21:52)
[2019-11-24] MEDS: RIVAROXABAN 20 MG TABLET PO SCH (17:55)
[2019-11-24] MEDS: traZODone HCL 100 MG TABLET (FP) PO SCH (21:52)
[2019-11-24] MEDS: MELATONIN 5 MG TABLETS PO SCH (21:53)
[2019-11-24] MEDS: THIAMINE HCL 100 MG TABLET (FP) PO SCH (21:53)
[2019-11-24] MEDS: diazePAM 5 MG TABLET PO PRN (21:55)
[2019-11-25] MEDS: VITAMINS A AND D TOPICAL OINTMENT 60 GM TUBE TP SCH ×3 (01:00→12:28)
[2019-11-25] MEDS: busPIRone HCL 5 MG TABLET PO SCH (05:45)
[2019-11-25] MEDS: hydrOXYzine PAMOATE 50 MG CAPSULE (FP) PO SCH ×2 (05:45→12:28)
[2019-11-25] MEDS: GABAPENTIN 300 MG CAPSULE PO SCH (05:45)
--- NOTE | 2019-11-25 08:49 | PN ---
[facility] CIWA - CIWA Score Nausea/Vomitin-No Nausea/No Vomiting Muscle Tremors: None Anxiety: 1-Mildly Anxious Agitation: 0-Normal Activity Paroxysmal Sweats: No Perspiration Orientation: 0-Oriented Tacttile Disturbances: 0-None Auditory Disturbances: 0-None Visual Disturbances: 0-None Headache: 0-None Present CIWA-Ar Total Score: 1 [facility] COWS - Scale Resting Pulse: 2= NC 101-120 Sweatin= No chills or Flushing Restless Observation: 0= Sits Still Pupil Size: 0= Normal to Room Light Bone or Joint Aches: 0= None Runny Nose/ Eye Tearin= None GI Upset > 30mins: 0= None Tremor Observation of Outstretched Hands: 0= None Yawning Observation: 0= None Anxiety or Irritability: 0= None Goose Flesh Skin: 0=Smooth Skin COWS Score: 2 [facility] Progress Note (SOAP) Subjective: alert,no complaint Objective: 11/25/19 14:37 Vital Signs Temperature 97.5 F L 11/25/19 08:35 Pulse Rate 106 H 11/25/19 08:35 Respiratory Rate 20 11/25/19 08:35 Blood Pressure 116/68 11/25/19 08:35 O2 Sat by Pulse Oximetry (%) 100 11/24/19 20:40 Assessment: 11/25/19 14:37 no withdrawal symptom Plan: stable for discharge today,follow up with [facility] care [facility] arrangement
[2019-11-25 09:38] VITALS: BP 116/68; PULSE 106; TEMP 97.5
[2019-11-25] MEDS ORDERED: METHADONE HCL 10 MG TABLET (FOR DETOX USE ONLY) PO ONE (10:00)
--- NOTE | 2019-11-25 10:01 | DS ---
[facility] Detox Discharge Summary Admission Date: 11/21/19 Discharge Date: 11/25/19 - History Present History: Alcohol Dependence, Cannabis Dependence, Opioid Dependence Additional Comments: alert,oriented x 3 ambulation on the unit lung clear on auscultation bilaterally varicose veins both leg no withdrawal symptom stable for discharge today follow up with [facility] arrangement total time of discharge 30 minutes Pertinent Past History: dvt left leg history of pulmonary embolism neuropathy low back pain bipolar disorder seizure - Physical Exam Results Vital Signs: Vital Signs Temperature 97.5 F L 11/25/19 08:35 Pulse Rate 106 H 11/25/19 08:35 Respiratory Rate 20 11/25/19 08:35 Blood Pressure 116/68 11/25/19 08:35 O2 Sat by Pulse Oximetry (%) 100 11/24/19 20:40 Pertinent Admission Physical Exam Findings: withdrawal signs and symptom Laboratory Last Values WBC 7.3 K/mm3 (4.0-10.0) 11/21/19 15:10 RBC 4.12 M/mm3 (4.00-5.60) 11/21/19 15:10 Hgb 12.1 GM/dL (11.7-16.9) 11/21/19 15:10 Hct 36.4 % (35.4-49) 11/21/19 15:10 MCV 88.4 fl (80-96) 11/21/19 15:10 MCH 29.5 pg (25.7-33.7) 11/21/19 15:10 MCHC 33.3 g/dl (32.0-35.9) 11/21/19 15:10 RDW 13.9 % (11.9-15.9) D 11/21/19 15:10 Plt Count 175 K/MM3 (134-434) 11/21/19 15:10 MPV 10.5 fl (7.5-11.1) D 11/21/19 15:10 Sodium 139 mmol/L (136-145) 11/21/19 15:10 Potassium 3.5 mmol/L (3.5-5.1) 11/21/19 15:10 Chloride 106 mmol/L (98-107) 11/21/19 15:10 Carbon Dioxide 27 mmol/L (21-32) 11/21/19 15:10 Anion Gap 7 MMOL/L (8-16) L 11/21/19 15:10 BUN 12.0 mg/dL (7-18) 11/21/19 15:10 Creatinine 0.7 mg/dL (0.55-1.3) 11/21/19 15:10 Est GFR (CKD-EPI)AfAm 132.09 11/21/19 15:10 Est GFR (CKD-EPI)NonAf 113.97 11/21/19 15:10 Random Glucose 102 mg/dL (74-106) 11/21/19 15:10 Calcium 8.4 mg/dL (8.5-10.1) L 11/21/19 15:10 Total Bilirubin 0.7 mg/dL (0.2-1) 11/21/19 15:10 AST 32 U/L (15-37) 11/21/19 15:10 ALT 45 U/L (13-61) 11/21/19 15:10 Alkaline Phosphatase 68 U/L (45-117) 11/21/19 15:10 Total Protein 6.7 g/dl (6.4-8.2) 11/21/19 15:10 Albumin 3.4 g/dl (3.4-5.0) 11/21/19 15:10 Syphilis Serology Non-reactive (NONREACTIVE) 11/21/19 15:10 COVID-19 (CHERIE) Not detected (Not Detected) 11/21/19 16:00 - Treatment Hospital Course: Detox Protocol Followed, Detoxed Safely, Responded well, Discharged Condition Good, Rehab Referral Accepted Patient has Accepted a Rehab Referral to: [facility] - Medication Discharge Medications: Ambulatory Orders Olanzapine [Zyprexa] 20 mg PO BID 11/25/19 traZODone HCL [Trazodone HCl] 200 mg PO HS 11/25/19 - Diagnosis (1) Opioid dependence Status: Acute Qualifiers: Substance use status: uncomplicated Qualified Code(s): F11.20 - Opioid dependence, uncomplicated (2) Left leg DVT Status: Acute (3) Alcohol dependence with uncomplicated withdrawal Status: Acute (4) Cannabis dependence Status: Acute (5) Bipolar disorder Status: Chronic (6) Hepatitis C Status: Chronic Qualifiers: Viral hepatitis chronicity: carrier Qualified Code(s): B18.2 - Chronic vir al hepatitis C (7) History of pulmonary embolism Status: Acute (8) Neuropathy Status: Acute (9) Seizure Status: Acute - AMA Did Patient Leave Against Medical Advice: No
[2019-11-25] MEDS: OLANZapine 10 MG TABLET PO SCH (10:19)
[2019-11-25] MEDS: PRENATAL VITAMINS W/ FOLIC ACID TABLET (FP) PO SCH (10:20)
[2019-11-25] MEDS: NICOTINE 21 MG/24 HOURS TOPICAL PATCH TD SCH (10:20)
[2019-11-25] MEDS: diazePAM 5 MG TABLET PO PRN (12:28)
[2019-11-26] MEDS ORDERED: METHADONE HCL 5 MG TABLET (FOR DETOX USE ONLY) PO ONE (06:00)
== END 2019-11-25 12:55 | disposition other institution (70) | DRG 773 ==
LOC: YASAS 12:13 → Y3N 15:23
PROVIDERS: ADMIT Allergy & Immunology; ATTEND Allergy & Immunology
PROC: HZ2ZZZZ Detoxification Services for Substance Abuse Treatment (ICD-10-PCS; principal; 2019-11-22)
DX: F11.23 Opioid dependence with withdrawal (principal); F10.230 Alcohol dependence with withdrawal, uncomplicated; F12.20 Cannabis dependence, uncomplicated; F17.210 Nicotine dependence, cigarettes, uncomplicated; F31.9 Bipolar disorder, unspecified; F25.9 Schizoaffective disorder, unspecified; F19.282 Other psychoactive substance dependence with psychoactive substance-induced sleep disorder; G62.9 Polyneuropathy, unspecified; G40.909 Epilepsy, unspecified, not intractable, without status epilepticus; I83.93 Asymptomatic varicose veins of bilateral lower extremities; I82.402 Acute embolism and thrombosis of unspecified deep veins of left lower extremity; M54.5 Low back pain; R63.4 Abnormal weight loss; Z68.24 Body mass index [BMI] 24.0-24.9, adult; Z86.711 Personal history of pulmonary embolism; Z79.01 Long term (current) use of anticoagulants; Z91.013 Allergy to seafood; Z56.0 Unemployment, unspecified
CPT/HCPCS: 36415; 80053; 85027; 86780; 93005; 93010; U0003

== ENCOUNTER 2019-11-25 13:04 | Inpatient (IN) | payer OTHER ==
[2019-11-25] MEDS ORDERED: MAG HYDROX/AL HYDROX/SIMETH 30 ML UNIT-DOSE CUP PO PRN (15:30)
[2019-11-25] MEDS ORDERED: LOPERAMIDE HCL 2 MG CAPSULE PO PRN (15:30)
[2019-11-25] MEDS ORDERED: guaiFENesin 200 MG/10 ML 10 ML UNIT-DOSE CUPS PO PRN (15:30)
[2019-11-25] MEDS ORDERED: NICOTINE POLACRILEX 2 MG GUM BUC PRN (15:30)
[2019-11-25] MEDS ORDERED: IBUPROFEN 400 MG TABLET (FP) PO PRN (15:30)
[2019-11-25] MEDS ORDERED: MAGNESIUM HYDROX 2400MG/30ML ORAL SUSPENSION 30 ML CUP PO PRN (15:30)
[2019-11-25] MEDS ORDERED: ACETAMINOPHEN 325 MG TABLET (FP) PO PRN (15:30)
[2019-11-25] MEDS ORDERED: P-EPHED 60MG/TRIPROLIDI 2.5MG TABLET PO PRN (15:30)
[2019-11-25] MEDS ORDERED: MENTHOL/PHENOL 1 EACH UD MM PRN (15:30)
[2019-11-25] MEDS ORDERED: MAGNESIUM CITRATE 300 ML BOTTLE PO PRN (15:30)
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
[2019-11-25] MEDS: RIVAROXABAN 20 MG TABLET PO SCH (17:11)
[2019-11-25] MEDS: hydrOXYzine PAMOATE 25 MG CAPSULE (FP) PO PRN (21:03)
[2019-11-25] MEDS: MELATONIN 5 MG TABLETS PO SCH (21:03)
[2019-11-25] MEDS: THIAMINE HCL 100 MG TABLET (FP) PO SCH (21:03)
[2019-11-25] MEDS: busPIRone HCL 5 MG TABLET PO SCH (21:04)
[2019-11-25] MEDS: traZODone HCL 100 MG TABLET (FP) PO SCH (21:04)
[2019-11-25] MEDS: HALOPERIDOL 5 MG TABLET PO SCH (21:04)
[2019-11-25] MEDS: GABAPENTIN 300 MG CAPSULE PO SCH (21:04)
[2019-11-25] MEDS: TOLNAFTATE 1% CREAM 15 GM TUBE TP SCH (21:05)
[2019-11-25] MEDS ORDERED: levETIRAcetam 250 MG TABLET PO SCH (22:00)
[2019-11-26] MEDS: GABAPENTIN 300 MG CAPSULE PO SCH ×3 (07:01→21:03)
[2019-11-26] MEDS: busPIRone HCL 5 MG TABLET PO SCH ×3 (07:01→21:03)
[2019-11-26] MEDS: SERTRALINE HCL 50 MG TABLET (FP) PO SCH (09:40)
[2019-11-26] MEDS: PRENATAL VITAMINS W/ FOLIC ACID TABLET (FP) PO SCH (09:41)
[2019-11-26] MEDS: hydrOXYzine PAMOATE 25 MG CAPSULE (FP) PO PRN ×2 (09:44→14:36)
[2019-11-26] MEDS: NICOTINE 7 MG/24 HOURS TOPICAL PATCH TD SCH (09:45)
[2019-11-26] MEDS: HALOPERIDOL 5 MG TABLET PO SCH ×2 (10:55→21:03)
[2019-11-26] MEDS: TOLNAFTATE 1% CREAM 15 GM TUBE TP SCH ×2 (11:31→21:04)
[2019-11-26] MEDS: RIVAROXABAN 20 MG TABLET PO SCH (17:06)
[2019-11-26] MEDS: THIAMINE HCL 100 MG TABLET (FP) PO SCH (21:03)
[2019-11-26] MEDS: MELATONIN 5 MG TABLETS PO SCH (21:04)
[2019-11-26] MEDS: traZODone HCL 100 MG TABLET (FP) PO SCH (21:59)
[2019-11-27] MEDS: busPIRone HCL 5 MG TABLET PO SCH ×3 (06:37→21:07)
[2019-11-27] MEDS: GABAPENTIN 300 MG CAPSULE PO SCH ×3 (06:37→21:08)
[2019-11-27] MEDS: SERTRALINE HCL 50 MG TABLET (FP) PO SCH (09:36)
[2019-11-27] MEDS: hydrOXYzine PAMOATE 25 MG CAPSULE (FP) PO PRN ×2 (09:36→21:07)
[2019-11-27] MEDS: PRENATAL VITAMINS W/ FOLIC ACID TABLET (FP) PO SCH (09:36)
[2019-11-27] MEDS: HALOPERIDOL 5 MG TABLET PO SCH ×2 (09:36→21:07)
[2019-11-27] MEDS: TOLNAFTATE 1% CREAM 15 GM TUBE TP SCH ×2 (09:37→21:07)
[2019-11-27] MEDS: NICOTINE 7 MG/24 HOURS TOPICAL PATCH TD SCH (09:37)
[2019-11-27] MEDS: RIVAROXABAN 20 MG TABLET PO SCH (17:26)
[2019-11-27] MEDS: THIAMINE HCL 100 MG TABLET (FP) PO SCH (21:07)
[2019-11-27] MEDS: MELATONIN 5 MG TABLETS PO SCH (21:08)
[2019-11-27] MEDS: traZODone HCL 100 MG TABLET (FP) PO SCH (22:28)
[2019-11-28] MEDS: GABAPENTIN 300 MG CAPSULE PO SCH ×3 (06:13→21:14)
[2019-11-28] MEDS: busPIRone HCL 5 MG TABLET PO SCH ×3 (06:13→22:33)
[2019-11-28] MEDS: SERTRALINE HCL 50 MG TABLET (FP) PO SCH (10:11)
[2019-11-28] MEDS: NICOTINE 7 MG/24 HOURS TOPICAL PATCH TD SCH (10:11)
[2019-11-28] MEDS: PRENATAL VITAMINS W/ FOLIC ACID TABLET (FP) PO SCH (10:11)
[2019-11-28] MEDS: TOLNAFTATE 1% CREAM 15 GM TUBE TP SCH ×2 (10:12→21:16)
[2019-11-28] MEDS: HALOPERIDOL 5 MG TABLET PO SCH ×2 (10:19→21:16)
[2019-11-28] MEDS: hydrOXYzine PAMOATE 25 MG CAPSULE (FP) PO PRN ×2 (13:52→21:15)
[2019-11-28] MEDS: RIVAROXABAN 20 MG TABLET PO SCH (18:08)
[2019-11-28] MEDS: traZODone HCL 100 MG TABLET (FP) PO SCH (21:14)
[2019-11-28] MEDS: THIAMINE HCL 100 MG TABLET (FP) PO SCH (21:15)
[2019-11-28] MEDS: MELATONIN 5 MG TABLETS PO SCH (21:16)
[2019-11-29] MEDS: GABAPENTIN 300 MG CAPSULE PO SCH ×3 (06:21→21:02)
[2019-11-29] MEDS: busPIRone HCL 5 MG TABLET PO SCH ×3 (07:38→21:02)
[2019-11-29] MEDS: SERTRALINE HCL 50 MG TABLET (FP) PO SCH (10:01)
[2019-11-29] MEDS: hydrOXYzine PAMOATE 25 MG CAPSULE (FP) PO PRN (10:01)
[2019-11-29] MEDS: TOLNAFTATE 1% CREAM 15 GM TUBE TP SCH ×2 (10:01→21:04)
[2019-11-29] MEDS: HALOPERIDOL 5 MG TABLET PO SCH ×2 (10:01→21:02)
[2019-11-29] MEDS: PRENATAL VITAMINS W/ FOLIC ACID TABLET (FP) PO SCH (10:02)
[2019-11-29] MEDS: NICOTINE 7 MG/24 HOURS TOPICAL PATCH TD SCH (10:02)
[2019-11-29] MEDS: RIVAROXABAN 20 MG TABLET PO SCH (17:27)
[2019-11-29] MEDS: MELATONIN 5 MG TABLETS PO SCH (21:02)
[2019-11-29] MEDS: traZODone HCL 100 MG TABLET (FP) PO SCH (21:02)
[2019-11-29] MEDS: THIAMINE HCL 100 MG TABLET (FP) PO SCH (21:02)
[2019-11-30] MEDS: busPIRone HCL 5 MG TABLET PO SCH ×2 (06:30→14:46)
[2019-11-30] MEDS: GABAPENTIN 300 MG CAPSULE PO SCH ×3 (06:30→21:08)
[2019-11-30] MEDS: HALOPERIDOL 5 MG TABLET PO SCH ×2 (10:09→21:07)
[2019-11-30] MEDS: SERTRALINE HCL 50 MG TABLET (FP) PO SCH (10:10)
[2019-11-30] MEDS: hydrOXYzine PAMOATE 25 MG CAPSULE (FP) PO PRN ×2 (10:10→21:07)
[2019-11-30] MEDS: PRENATAL VITAMINS W/ FOLIC ACID TABLET (FP) PO SCH (10:10)
[2019-11-30] MEDS: NICOTINE 7 MG/24 HOURS TOPICAL PATCH TD SCH (10:11)
[2019-11-30] MEDS: TOLNAFTATE 1% CREAM 15 GM TUBE TP SCH ×2 (10:11→21:09)
--- NOTE | 2019-11-30 16:01 | PN ---
Psychiatric Progress Note Vital Signs: Vital Signs Period Temp Pulse Resp BP Sys/Escalante Pulse Ox Last 24 Hr 97.5 F 71 18 102/70 97-97 Date of Session: 11/30/19 Current Medications: Active Medications Generic Name Dose Route Start Last Admin Trade Name Freq PRN Reason Stop Dose Admin Acetaminophen 650 mg 11/25/19 15:30 Tylenol - PO Q4H PRN FEVER Al Hydroxide/Mg Hydroxide 30 ml 11/25/19 15:30 Mylanta Oral Suspension - PO Q6H PRN DYSPEPSIA Buspirone HCl 10 mg 11/30/19 22:00 Buspar - PO TID ESTEBAN Eucalyptus/Menthol/Phenol/Sorbitol 1 each 11/25/19 15:30 Cepastat Lozenge - MM Q4H PRN SORE THROAT Gabapentin 600 mg 11/25/19 22:00 11/30/19 14:46 Neurontin - PO 600 mg TID ESTEBAN Administration Guaifenesin 10 ml 11/25/19 15:30 Robitussin - PO Q6H PRN COUGH Haloperidol 5 mg 11/25/19 22:00 11/30/19 10:09 Haldol - PO 5 mg BID ESTEBAN Administration Hydroxyzine Pamoate 25 mg 11/25/19 15:30 11/30/19 10:10 Vistaril - PO 25 mg Q4H PRN Administration ANXIETY Levetiracetam 250 mg/ 750 mg 11/25/19 22:00 11/30/19 10:11 Levetiracetam 500 mg PO Not Given BID ESTEBAN Loperamide HCl 4 mg 11/25/19 15:30 Imodium - PO Q6H PRN DIARRHEA Magnesium Citrate 300 ml 11/25/19 15:30 Citroma - PO Q48H PRN CONSTIPATION Magnesium Hydroxide 30 ml 11/25/19 15:30 Milk Of Magnesia - PO DAILY PRN CONSTIPATION Melatonin 5 mg 11/25/19 22:00 11/29/19 21:02 Melatonin PO 5 mg HS ESTEBAN Administration Nicotine 7 mg 11/26/19 10:00 11/30/19 10:11 Nicoderm Patch - TD 7 mg DAILY ESTEBAN Administration Nicotine Polacrilex 2 mg 11/25/19 15:30 Nicorette Gum - BUC Q2H PRN NICOTINE REPLACEMENT RX Multivit/Folic Acid/Iron 1 tab 11/26/19 10:00 11/30/19 10:10 Vitamins (Sjr) - PO 1 tab DAILY ESTEBAN Administration Pseudoephedrine/Triprolidine 1 combo 11/25/19 15:30 Actifed - PO TID PRN NASAL CONGESTION Rivaroxaban 20 mg 11/25/19 18:00 11/29/19 17:27 Xarelto PO 20 mg DAILY@1800 ESTEBAN Administration Sertraline HCl 100 mg 11/26/19 10:00 11/30/19 10:10 Zoloft - PO 100 mg DAILY ESTEBAN Administration Thiamine HCl 100 mg 11/25/19 22:00 11/29/19 21:02 Vitamin B1 - PO 100 mg HS ESTEBAN Administration Tolnaftate 1 applic 11/25/19 22:00 11/30/19 10:11 Tinactin 1% Cream - TP 1 applic BID ESTEBAN Administration Trazodone HCl 200 mg 11/25/19 22:00 11/29/19 21:02 Desyrel - PO 200 mg HS ESTEBAN Administration
--- NOTE | 2019-11-30 17:07 | PN ---
Psychiatric Progress Note Vital Signs: Vital Signs Period Temp Pulse Resp BP Sys/Escalante Pulse Ox Last 24 Hr 97.5 F 71 18 102/70 97-97 Date of Session: 11/30/19 Chief Complaint:: " I wants something strong for anxiety and 300 mg of trazodone." HPI: Psychiatric reconsult on this patient, already seen on three occasions by Liaison-Psychiatry, to address " depression ". On examination, Mr Boyce reports that he wanted to see the psychiatrist again " to ask for 300 mg of trazodone for insomnia and to get something stronger for my anxiety." Patient is observed ambulating calmly on the unit. Hospitalization has been otherwise unremarkable except for medication-seeking behavior. ROS: Unremarkable. Alert and fully oriented. Steady gait. Doing fine. Current Medications: Active Medications Generic Name Dose Route Start Last Admin Trade Name Freq PRN Reason Stop Dose Admin Acetaminophen 650 mg 11/25/19 15:30 Tylenol - PO Q4H PRN FEVER Al Hydroxide/Mg Hydroxide 30 ml 11/25/19 15:30 Mylanta Oral Suspension - PO Q6H PRN DYSPEPSIA Buspirone HCl 10 mg 11/30/19 22:00 Buspar - PO TID ESTEBAN Eucalyptus/Menthol/Phenol/Sorbitol 1 each 11/25/19 15:30 Cepastat Lozenge - MM Q4H PRN SORE THROAT Gabapentin 600 mg 11/25/19 22:00 11/30/19 14:46 Neurontin - PO 600 mg TID ESTEBAN Administration Guaifenesin 10 ml 11/25/19 15:30 Robitussin - PO Q6H PRN COUGH Haloperidol 5 mg 11/25/19 22:00 11/30/19 10:09 Haldol - PO 5 mg BID ESTEBAN Administration Hydroxyzine Pamoate 25 mg 11/25/19 15:30 11/30/19 10:10 Vistaril - PO 25 mg Q4H PRN Administration ANXIETY Levetiracetam 250 mg/ 750 mg 11/25/19 22:00 11/30/19 10:11 Levetiracetam 500 mg PO Not Given BID ESTEBAN Loperamide HCl 4 mg 11/25/19 15:30 Imodium - PO Q6H PRN DIARRHEA Magnesium Citrate 300 ml 11/25/19 15:30 Citroma - PO Q48H PRN CONSTIPATION Magnesium Hydroxide 30 ml 11/25/19 15:30 Milk Of Magnesia - PO DAILY PRN CONSTIPATION Melatonin 5 mg 11/25/19 22:00 11/29/19 21:02 Melatonin PO 5 mg HS ESTEBAN Administration Nicotine 7 mg 11/26/19 10:00 11/30/19 10:11 Nicoderm Patch - TD 7 mg DAILY ESTEBAN Administration Nicotine Polacrilex 2 mg 11/25/19 15:30 Nicorette Gum - BUC Q2H PRN NICOTINE REPLACEMENT RX Multivit/Folic Acid/Iron 1 tab 11/26/19 10:00 11/30/19 10:10 Vitamins (Sjr) - PO 1 tab DAILY ESTEBAN Administration Pseudoephedrine/Triprolidine 1 combo 11/25/19 15:30 Actifed - PO TID PRN NASAL CONGESTION Rivaroxaban 20 mg 11/25/19 18:00 11/29/19 17:27 Xarelto PO 20 mg DAILY@1800 ESTEBAN Administration Sertraline HCl 100 mg 11/26/19 10:00 11/30/19 10:10 Zoloft - PO 100 mg DAILY ESTEBAN Administration Thiamine HCl 100 mg 11/25/19 22:00 11/29/19 21:02 Vitamin B1 - PO 100 mg HS ESTEBAN Administration Tolnaftate 1 applic 11/25/19 22:00 11/30/19 10:11 Tinactin 1% Cream - TP 1 applic BID ESTEBAN Administration Trazodone HCl 200 mg 11/25/19 22:00 11/29/19 21:02 Desyrel - PO 200 mg HS ESTEBAN Administration Medication(s) Change(s): Medications revisited and discussed, in detail, with the patient. Natural course of anxiety, depression and mode of action of SSRI drugs/neuroleptic medication, in addition to non-benzodiazepine anxiolytics : explained to the patient as well. Current regimen of medications is READ with patient. Action taken : trazodone remains at 200 mg/hs + buspar is raised to 10 mg po tid + gabapentin stays at 600 mg/tid and prn vistaril (q 4 hrs). Side effects/benefits discussed. Patient verbalizes his agreement with thisplan of care. Firm limits established (to discourage manipulation or escalation for gratification). Current Side Effect: No Lab tests ordered: No Lab tests reviewed: Yes Provider note:: Chart is reviewed. Case discusssed with nursing staff. Patient is re-interviewed for assessment of mental status. No evidence of psychosis or terrence. Mr Boyce is NOT meeting criteria for acute depressive episode. He exhibits preoccupation for an " anxiety medication " and he expects MD to raise his trazodone dose to 300 mg at night " because this what I used to take in the streets." He declines to switch to quetiapine. Patient is provided with reassurance and encouraged to allow time for the medications to gradually produce therapeutic effects. He is receptive to teaching. He denies suicidal or homicidal ideation, intent or plan. Behavior bears the hallmarks of character traits (borderline/antisocial). Boundaries have to be set. Mental status is stable. SEE MSE report for details. Maintain close observation. NO justification for further psychiatric intervention. Mr Smith is at baseline. Total face to face time:: 45 Mental Status Exam - Mental Status Exam Alert and Oriented to: Time, Place, Person Cognitive Function: Good Patient Appearance: Well Groomed Mood: Irritable Affect: Mood Congruent, Normal Range Patient Behavior: Inappropriate, Talkative Speech Pattern: Clear Voice Loudness: Normal Thought Process: Goal Oriented Thought Disorder: Not Present Hallucinations: Denies Suicidal Ideation: Denies Homicidal Ideation: Denies Insight/Judgement: Poor Sleep: Poorly, Difficulty falling asleep Appetite: Good Gait/Station: Normal Psychiatric Treatment Plan - Problem List (1) Alcohol use disorder Current Visit: Yes Comment: . (2) Cannabis dependence Current Visit: Yes Comment: 1. Substance use disorder education (3) Substance induced mood disorder Current Visit: Yes Comment: . (4) Bipolar disorder Current Visit: Yes Comment: .
[2019-11-30] MEDS: RIVAROXABAN 20 MG TABLET PO SCH (17:20)
[2019-11-30] MEDS: busPIRone HCL 10 MG TABLET (FP) PO SCH (21:06)
[2019-11-30] MEDS: THIAMINE HCL 100 MG TABLET (FP) PO SCH (21:07)
[2019-11-30] MEDS: traZODone HCL 100 MG TABLET (FP) PO SCH (21:07)
[2019-11-30] MEDS: MELATONIN 5 MG TABLETS PO SCH (21:08)
[2019-12-01] MEDS: busPIRone HCL 10 MG TABLET (FP) PO SCH ×3 (07:07→21:04)
[2019-12-01] MEDS: GABAPENTIN 300 MG CAPSULE PO SCH ×3 (07:07→21:04)
[2019-12-01] MEDS: SERTRALINE HCL 50 MG TABLET (FP) PO SCH (10:03)
[2019-12-01] MEDS: hydrOXYzine PAMOATE 25 MG CAPSULE (FP) PO PRN ×2 (10:03→21:04)
[2019-12-01] MEDS: PRENATAL VITAMINS W/ FOLIC ACID TABLET (FP) PO SCH (10:03)
[2019-12-01] MEDS: HALOPERIDOL 5 MG TABLET PO SCH ×2 (10:03→21:04)
[2019-12-01] MEDS: TOLNAFTATE 1% CREAM 15 GM TUBE TP SCH ×2 (10:04→21:05)
[2019-12-01] MEDS: NICOTINE 7 MG/24 HOURS TOPICAL PATCH TD SCH (10:04)
[2019-12-01] MEDS: RIVAROXABAN 20 MG TABLET PO SCH (17:35)
[2019-12-01] MEDS: THIAMINE HCL 100 MG TABLET (FP) PO SCH (21:04)
[2019-12-01] MEDS: traZODone HCL 100 MG TABLET (FP) PO SCH (21:04)
[2019-12-01] MEDS: MELATONIN 5 MG TABLETS PO SCH (21:05)
[2019-12-02] MEDS: busPIRone HCL 10 MG TABLET (FP) PO SCH ×3 (07:41→21:02)
[2019-12-02] MEDS: GABAPENTIN 300 MG CAPSULE PO SCH ×3 (07:41→21:02)
[2019-12-02] MEDS: COLLOIDAL OATMEAL 1 BAR EACH TP PRN (10:04)
[2019-12-02] MEDS: SERTRALINE HCL 50 MG TABLET (FP) PO SCH (10:05)
[2019-12-02] MEDS: HALOPERIDOL 5 MG TABLET PO SCH ×2 (10:05→21:02)
[2019-12-02] MEDS: NICOTINE 7 MG/24 HOURS TOPICAL PATCH TD SCH (10:05)
[2019-12-02] MEDS: PRENATAL VITAMINS W/ FOLIC ACID TABLET (FP) PO SCH (10:06)
[2019-12-02] MEDS: TOLNAFTATE 1% CREAM 15 GM TUBE TP SCH ×2 (10:06→21:03)
[2019-12-02] MEDS: RIVAROXABAN 20 MG TABLET PO SCH (17:28)
[2019-12-02] MEDS: MELATONIN 5 MG TABLETS PO SCH (21:02)
[2019-12-02] MEDS: traZODone HCL 100 MG TABLET (FP) PO SCH (21:02)
[2019-12-02] MEDS: THIAMINE HCL 100 MG TABLET (FP) PO SCH (21:02)
[2019-12-02] MEDS: hydrOXYzine PAMOATE 25 MG CAPSULE (FP) PO PRN (21:02)
[2019-12-03] MEDS: GABAPENTIN 300 MG CAPSULE PO SCH ×3 (06:48→21:18)
[2019-12-03] MEDS: busPIRone HCL 10 MG TABLET (FP) PO SCH ×3 (06:49→21:18)
[2019-12-03] MEDS: HALOPERIDOL 5 MG TABLET PO SCH ×2 (09:28→21:18)
[2019-12-03] MEDS: NICOTINE 7 MG/24 HOURS TOPICAL PATCH TD SCH (09:28)
[2019-12-03] MEDS: PRENATAL VITAMINS W/ FOLIC ACID TABLET (FP) PO SCH (09:28)
[2019-12-03] MEDS: SERTRALINE HCL 50 MG TABLET (FP) PO SCH (09:28)
[2019-12-03] MEDS: hydrOXYzine PAMOATE 25 MG CAPSULE (FP) PO PRN ×2 (09:29→21:18)
[2019-12-03] MEDS: TOLNAFTATE 1% CREAM 15 GM TUBE TP SCH ×2 (09:30→21:20)
[2019-12-03] MEDS: RIVAROXABAN 20 MG TABLET PO SCH (17:11)
[2019-12-03] MEDS: MELATONIN 5 MG TABLETS PO SCH (21:18)
[2019-12-03] MEDS: THIAMINE HCL 100 MG TABLET (FP) PO SCH (21:18)
[2019-12-03] MEDS: traZODone HCL 100 MG TABLET (FP) PO SCH (21:18)
[2019-12-04] MEDS: GABAPENTIN 300 MG CAPSULE PO SCH ×3 (06:16→21:09)
[2019-12-04] MEDS: busPIRone HCL 10 MG TABLET (FP) PO SCH ×3 (06:16→21:08)
[2019-12-04] MEDS: HALOPERIDOL 5 MG TABLET PO SCH ×2 (09:29→21:09)
[2019-12-04] MEDS: PRENATAL VITAMINS W/ FOLIC ACID TABLET (FP) PO SCH (09:29)
[2019-12-04] MEDS: TOLNAFTATE 1% CREAM 15 GM TUBE TP SCH ×2 (09:30→21:10)
[2019-12-04] MEDS: NICOTINE 7 MG/24 HOURS TOPICAL PATCH TD SCH (09:30)
[2019-12-04] MEDS: SERTRALINE HCL 50 MG TABLET (FP) PO SCH (09:30)
[2019-12-04] MEDS: RIVAROXABAN 20 MG TABLET PO SCH (17:21)
[2019-12-04] MEDS: THIAMINE HCL 100 MG TABLET (FP) PO SCH (21:08)
[2019-12-04] MEDS: traZODone HCL 100 MG TABLET (FP) PO SCH (21:08)
[2019-12-04] MEDS: MELATONIN 5 MG TABLETS PO SCH (21:09)
[2019-12-05] MEDS: GABAPENTIN 300 MG CAPSULE PO SCH ×3 (06:50→21:08)
[2019-12-05] MEDS: busPIRone HCL 10 MG TABLET (FP) PO SCH ×3 (06:50→21:08)
[2019-12-05] MEDS: HALOPERIDOL 5 MG TABLET PO SCH ×2 (09:26→21:07)
[2019-12-05] MEDS: PRENATAL VITAMINS W/ FOLIC ACID TABLET (FP) PO SCH (09:27)
[2019-12-05] MEDS: NICOTINE 7 MG/24 HOURS TOPICAL PATCH TD SCH (09:28)
[2019-12-05] MEDS: SERTRALINE HCL 50 MG TABLET (FP) PO SCH (09:28)
[2019-12-05] MEDS: TOLNAFTATE 1% CREAM 15 GM TUBE TP SCH ×2 (09:29→21:07)
[2019-12-05] MEDS: COLLOIDAL OATMEAL 1 BAR EACH TP PRN (10:30)
[2019-12-05] MEDS: RIVAROXABAN 20 MG TABLET PO SCH (17:51)
[2019-12-05] MEDS: THIAMINE HCL 100 MG TABLET (FP) PO SCH (21:07)
[2019-12-05] MEDS: MELATONIN 5 MG TABLETS PO SCH (21:07)
[2019-12-05] MEDS: hydrOXYzine PAMOATE 25 MG CAPSULE (FP) PO PRN (21:08)
[2019-12-05] MEDS: traZODone HCL 100 MG TABLET (FP) PO SCH (21:08)
[2019-12-06 06:39] VITALS: BP 120/79; PULSE 61; TEMP 97.7
[2019-12-06] MEDS: busPIRone HCL 10 MG TABLET (FP) PO SCH (06:49)
[2019-12-06] MEDS: GABAPENTIN 300 MG CAPSULE PO SCH (06:49)
--- NOTE | 2019-12-06 08:48 | DS ---
[facility] Re[facility] Discharge Summary - [facility] Discharge Summary Admission Date: 11/25/19 Discharge Date: 12/06/19 - History Present History: Alcohol dependence, Cannabis dependence, Opioid dependence Pertinent Past History: Hx DVT left leg Hx PE Seizure Disorder(on keppra) Hx Peripheral Neuropathy s/p Intubation 2 months ago(coma0 Bipolar Disorder - Discharge Physical Exam Vital Signs: Vital Signs Temperature 97.7 F 12/06/19 06:07 Pulse Rate 61 12/06/19 06:07 Respiratory Rate 18 12/06/19 06:07 Blood Pressure 120/79 12/06/19 06:07 O2 Sat by Pulse Oximetry (%) 95 12/06/19 06:07 General;WDWN male, Alert o x 3, nad, denies s/h/i Cardiac:s1 s2,rrr lungs:ctab abdomen:soft,+bs,nt,nd MSK/Skin:Active FROM, all limbs; oob ambulating with steady gait; no edema, skin intact. - Treatment Discharge Condition: Discharge condition good, Rehabilitated safely, Responded well, Outpatient referral accepted Hospital Course: Pt completed rehab and discharged today CD aftercare referral accepted to [facility]. - Medication Discharge Medications: Ambulatory Orders Buspirone HCl [Buspar -] 5 mg PO TID 11/25/19 Folic Acid 1 mg PO DAILY 11/25/19 Haloperidol [Haldol -] 5 mg PO BID 11/25/19 Rivaroxaban [Xarelto -] 20 mg PO DAILY@1800 tablet 11/25/19 Sertraline HCl [Zoloft] 100 mg PO DAILY 11/25/19 traZODone HCL [Trazodone HCl] 100 mg PO HS 11/25/19 Gabapentin [Neurontin -] 2 cap PO TID #84 capsule 12/06/19 levETIRAcetam [Keppra -] 750 mg PO BID 12/06/19 - Medication-Assisted Treatment (MAT) Medication-Assisted Treatment (MAT): No - Discharge Instructions Diet, activity, other medical instructions: Diet:Regular Activity: oob ad moon Other medical instructions:follow up with PCP at [facility] today as scheduled. - Diagnosis (1) Alcohol use disorder Status: Chronic (2) Cannabis dependence Status: Chronic (3) History of pulmonary embolism Status: Chronic (4) Left leg DVT Status: Chronic Qualifiers: Chronicity: unspecified (5) Neuropathy Status: Chronic (6) Nicotine dependence, uncomplicated Status: Chronic Qualifiers: Nicotine product type: cigarettes Qualified Code(s): F17.210 - Nicotine dependence, cigarettes, uncomplicated (7) Seizure Status: Chronic (8) Hepatitis C Status: Chronic Qualifiers: Viral hepatitis chronicity: unspecified - Follow-up Referral Minutes to complete discharge: 30 - AMA Did Patient Leave Against Medical Advice: No Additional Comments: This sba underwriter called pt's [facility] pharmacy, spoke with Ms Brown [facility] who instructed pt to lemon picker his medications from the pharmacy after discharge. Courtesy Rx Gbapentin 6oo mg po TID #84 x 14 days electronically sent to this pharmacy for lemon picker. Pt reports primary care with [facility] and will be walking in today after discharge.
[2019-12-06] MEDS: HALOPERIDOL 5 MG TABLET PO SCH (09:10)
[2019-12-06] MEDS: PRENATAL VITAMINS W/ FOLIC ACID TABLET (FP) PO SCH (09:10)
[2019-12-06] MEDS: SERTRALINE HCL 50 MG TABLET (FP) PO SCH (09:10)
[2019-12-06] MEDS: NICOTINE 7 MG/24 HOURS TOPICAL PATCH TD SCH (09:10)
[2019-12-06] MEDS: TOLNAFTATE 1% CREAM 15 GM TUBE TP SCH (09:11)
== END 2019-12-06 10:10 | disposition home or self-care (01) | DRG 772 ==
LOC: YASAS 13:04 → Y5N 13:05
PROVIDERS: ADMIT Allergy & Immunology; ATTEND Allergy & Immunology
PROC: HZ42ZZZ Group Counseling for Substance Abuse Treatment, Cognitive-Behavioral (ICD-10-PCS; principal; 2019-11-25)
DX: F11.20 Opioid dependence, uncomplicated (principal); F10.20 Alcohol dependence, uncomplicated; F12.20 Cannabis dependence, uncomplicated; F17.210 Nicotine dependence, cigarettes, uncomplicated; F19.282 Other psychoactive substance dependence with psychoactive substance-induced sleep disorder; F19.24 Other psychoactive substance dependence with psychoactive substance-induced mood disorder; F25.9 Schizoaffective disorder, unspecified; F31.9 Bipolar disorder, unspecified; I82.402 Acute embolism and thrombosis of unspecified deep veins of left lower extremity; G40.909 Epilepsy, unspecified, not intractable, without status epilepticus; B18.2 Chronic viral hepatitis C; Z62.810 Personal history of physical and sexual abuse in childhood; Z86.711 Personal history of pulmonary embolism; Z79.01 Long term (current) use of anticoagulants; Z91.013 Allergy to seafood

== ENCOUNTER 2020-10-30 14:56 | Inpatient (IN) | payer OTHER ==
[2020-10-30 15:44] VITALS: BMI 20.9
[2020-10-30] MEDS ORDERED: MAG HYDROX/AL HYDROX/SIMETH 30 ML UNIT-DOSE CUP PO PRN (18:12)
[2020-10-30] MEDS ORDERED: ACETAMINOPHEN 325 MG TABLET (FP) PO PRN (18:12)
[2020-10-30] MEDS ORDERED: MAGNESIUM CITRATE 300 ML BOTTLE PO PRN (18:12)
[2020-10-30] MEDS ORDERED: MENTHOL/PHENOL 1 EACH UD MM PRN (18:12)
[2020-10-30] MEDS ORDERED: NICOTINE 10 MG CARTRIDGE (INHALER) IH PRN (18:12)
[2020-10-30] MEDS ORDERED: MAGNESIUM HYDROX 2400MG/30ML ORAL SUSPENSION 30 ML CUP PO PRN (18:12)
[2020-10-30] MEDS ORDERED: ONDANSETRON *ODT* 4 MG TABLET SL PRN (18:12)
[2020-10-30] MEDS ORDERED: BISMUTH SUBSALICYLATE 524 MG/30 ML PO PRN (18:12)
[2020-10-30] MEDS ORDERED: diazePAM 5 MG TABLET PO PRN (18:16)
[2020-10-30] MEDS ORDERED: diazePAM 5 MG TABLET PO ONE (18:16)
[2020-10-30] MEDS ORDERED: traZODone HCL 150 MG TABLET PO SCH (22:00)
[2020-10-30] MEDS ORDERED: traZODone HCL 100 MG TABLET (FP) PO SCH (22:54)
[2020-10-30] MEDS: diazePAM 5 MG TABLET PO SCH (23:08)
[2020-10-30] MEDS: THIAMINE HCL 100 MG TABLET (FP) PO SCH (23:08)
[2020-10-30] MEDS: traZODone HCL 100 MG TABLET (FP) PO SCH (23:08)
[2020-10-31] MEDS: diazePAM 5 MG TABLET PO SCH ×4 (05:23→22:30)
[2020-10-31] MEDS ORDERED: methaDONE HCL 10 MG TABLET PO SCH (08:45)
[2020-10-31] MEDS ORDERED: methaDONE HCL 40 MG DISPERSABLE TABLET ONE (09:03)
[2020-10-31] MEDS ORDERED: methaDONE HCL 10 MG TABLET ONE (09:03)
[2020-10-31] MEDS: methaDONE 40 MG, methaDONE 20 MG PO SCH (09:21)
[2020-10-31] MEDS: PRENATAL VITAMINS W/ FOLIC ACID TABLET (FP) PO SCH (10:19)
[2020-10-31] MEDS: traZODone HCL 50 MG TABLET (FP) PO SCH (17:06)
[2020-10-31] MEDS: RIVAROXABAN 20 MG TABLET PO SCH (19:24)
[2020-10-31] MEDS: traZODone HCL 100 MG TABLET (FP) PO SCH (22:30)
[2020-10-31] MEDS: THIAMINE HCL 100 MG TABLET (FP) PO SCH (22:30)
[2020-11-01] MEDS ORDERED: LORazepam 0.5 MG TABLET PO PRN
[2020-11-01] MEDS ORDERED: methaDONE HCL 40 MG DISPERSABLE TABLET ONE (05:52)
[2020-11-01] MEDS ORDERED: methaDONE HCL 10 MG TABLET ONE (05:52)
[2020-11-01] MEDS ORDERED: diazePAM 5 MG TABLET PO SCH (06:00)
[2020-11-01] MEDS: methaDONE 40 MG, methaDONE 20 MG PO SCH (06:00)
[2020-11-01] MEDS ORDERED: LORazepam 1 MG TABLET PO PRN (09:28)
[2020-11-01] MEDS: LORazepam 2 MG TABLET PO SCH ×3 (10:14→22:31)
[2020-11-01] MEDS: PRENATAL VITAMINS W/ FOLIC ACID TABLET (FP) PO SCH (10:14)
[2020-11-01] MEDS: traZODone HCL 50 MG TABLET (FP) PO SCH (10:14)
[2020-11-01 12:36] LABS: HEMATOCRIT 42.1 % (35.4-49); HEMOGLOBIN 14.1 GM/dL (11.7-16.9); MCH 30.5 pg (25.7-33.7); MCHC 33.5 g/dl (32.0-35.9); MEAN CELL VOLUME 91.1 fl (80-96); PLATELET COUNT 186 10^3/uL (134-434); RBC 4.62 M/mm3 (4.00-5.60); RDW 16.2 % (11.9-15.9); WHITE BLOOD COUNT 7.6 K/mm3 (4.0-10.0)
[2020-11-01 12:50] LABS: CALCIUM 9.1 mg/dL (8.5-10.1)
[2020-11-01 12:51] LABS: ALBUMIN 3.8 g/dl (3.4-5.0); BLOOD UREA NITROGEN 14.3 mg/dL (7-18)
[2020-11-01 12:55] LABS: CREATININE 0.9 mg/dL (0.55-1.3)
[2020-11-01 12:56] LABS: BILIRUBIN,TOTAL 0.7 mg/dL (0.2-1); TOT PROT 7.6 g/dl (6.4-8.2)
[2020-11-01] MEDS: RIVAROXABAN 20 MG TABLET PO SCH (17:58)
[2020-11-01] MEDS: THIAMINE HCL 100 MG TABLET (FP) PO SCH (22:31)
[2020-11-01] MEDS: traZODone HCL 100 MG TABLET (FP) PO SCH (22:31)
[2020-11-01] MEDS ORDERED: hydrOXYzine PAMOATE 25 MG CAPSULE (FP) PO PRN (23:25)
[2020-11-01] MEDS ORDERED: METHOCARBAMOL 500 MG TABLET PO PRN (23:26)
[2020-11-02] MEDS ORDERED: methaDONE HCL 40 MG DISPERSABLE TABLET ONE (04:14)
[2020-11-02] MEDS ORDERED: methaDONE HCL 10 MG TABLET ONE (04:14)
[2020-11-02] MEDS: LORazepam 1 MG TABLET PO SCH ×3 (05:50→17:24)
[2020-11-02] MEDS: methaDONE 40 MG, methaDONE 20 MG PO SCH (05:50)
[2020-11-02] MEDS ORDERED: diazePAM 5 MG TABLET PO SCH (06:00)
[2020-11-02] MEDS: PRENATAL VITAMINS W/ FOLIC ACID TABLET (FP) PO SCH (10:09)
[2020-11-02] MEDS: traZODone HCL 50 MG TABLET (FP) PO SCH (10:09)
[2020-11-02] MEDS: RIVAROXABAN 20 MG TABLET PO SCH (17:24)
[2020-11-02] MEDS: THIAMINE HCL 100 MG TABLET (FP) PO SCH (23:09)
[2020-11-02] MEDS: traZODone HCL 100 MG TABLET (FP) PO SCH (23:09)
[2020-11-03] MEDS ORDERED: methaDONE HCL 10 MG TABLET ONE ×2 (04:21→06:32)
[2020-11-03] MEDS ORDERED: methaDONE HCL 40 MG DISPERSABLE TABLET ONE ×2 (04:21→06:32)
[2020-11-03] MEDS ORDERED: LORazepam 0.5 MG TABLET PO ONE (05:00)
[2020-11-03] MEDS ORDERED: diazePAM 5 MG TABLET PO ONE (06:00)
[2020-11-03] MEDS: methaDONE 40 MG, methaDONE 20 MG PO SCH (06:43)
[2020-11-03 07:27] VITALS: BP 117/79; PULSE 63; TEMP 97.1
== END 2020-11-03 09:20 | disposition home or self-care (01) | DRG 773 ==
LOC: YASAS 14:56 → Y6N 18:28 → Y3N 10-31 10:38
PROVIDERS: ADMIT Allergy & Immunology; ATTEND Allergy & Immunology
PROC: HZ2ZZZZ Detoxification Services for Substance Abuse Treatment (ICD-10-PCS; principal; 2020-10-30)
DX: F10.230 Alcohol dependence with withdrawal, uncomplicated (principal); F11.20 Opioid dependence, uncomplicated; F17.210 Nicotine dependence, cigarettes, uncomplicated; F25.9 Schizoaffective disorder, unspecified; F19.24 Other psychoactive substance dependence with psychoactive substance-induced mood disorder; G47.00 Insomnia, unspecified; R56.9 Unspecified convulsions; R74.8 Abnormal levels of other serum enzymes; Z62.810 Personal history of physical and sexual abuse in childhood; Z86.718 Personal history of other venous thrombosis and embolism; Z86.711 Personal history of pulmonary embolism; Z79.01 Long term (current) use of anticoagulants; Z86.19 Personal history of other infectious and parasitic diseases; Z56.0 Unemployment, unspecified; Z91.19 Patient's noncompliance with other medical treatment and regimen
CPT/HCPCS: 36415; 80053; 85027; 86780; C9803; U0003; U0005

== ENCOUNTER 2021-12-24 15:05 | Inpatient (IN) | payer OTHER ==
[2021-12-24 16:10] VITALS: BMI 27.8
[2021-12-24] MEDS ORDERED: BENZOCAINE/MENTHOL (CHLORASEPTIC ) LOZENGE MM PRN (17:53)
[2021-12-24] MEDS ORDERED: IBUPROFEN 400 MG TABLET (FP) PO PRN (17:53)
[2021-12-24] MEDS ORDERED: MAGNESIUM HYDROX 2400MG/30ML ORAL SUSPENSION 30 ML CUP PO PRN (17:53)
[2021-12-24] MEDS ORDERED: NICOTINE 10 MG CARTRIDGE (INHALER) IH PRN (17:53)
[2021-12-24] MEDS ORDERED: NALOXONE HCL 0.4 MG/ML VIAL IM PRN (17:53)
[2021-12-24] MEDS ORDERED: MAGNESIUM CITRATE 300 ML BOTTLE PO PRN (17:53)
[2021-12-24] MEDS ORDERED: DICYCLOMINE HCL 10 MG CAPSULE PO PRN (17:53)
[2021-12-24] MEDS ORDERED: MAG HYDROX/AL HYDROX/SIMETH 30 ML UNIT-DOSE CUP PO PRN (17:53)
[2021-12-24] MEDS ORDERED: NALOXONE HCL (KLOXXADO) 8 MG SPRAY NS PRN (17:53)
[2021-12-24] MEDS ORDERED: BISMUTH SUBSALICYLATE 524 MG/30 ML PO PRN (17:53)
[2021-12-24] MEDS ORDERED: ACETAMINOPHEN 325 MG TABLET (FP) PO PRN ×2 (17:53)
[2021-12-24] MEDS ORDERED: ONDANSETRON *ODT* 4 MG TABLET SL PRN (17:53)
[2021-12-24] MEDS ORDERED: LOPERAMIDE HCL 2 MG CAPSULE PO PRN (17:53)
[2021-12-24] MEDS ORDERED: chlordiazePOXIDE HCL 25 MG CAPSULE PO PRN (17:55)
[2021-12-24] MEDS: levETIRAcetam 250 MG TABLET PO SCH (22:46)
[2021-12-24] MEDS: THIAMINE HCL 100 MG TABLET (FP) PO SCH (22:46)
[2021-12-24] MEDS: chlordiazePOXIDE HCL 25 MG CAPSULE PO SCH (22:47)
[2021-12-25] MEDS: chlordiazePOXIDE HCL 25 MG CAPSULE PO SCH ×4 (06:13→22:51)
[2021-12-25] MEDS ORDERED: methaDONE HCL 10 MG TABLET PO ONE ×2 (09:41→11:30)
[2021-12-25] MEDS: PRENATAL VITAMINS W/ FOLIC ACID TABLET (FP) PO SCH (10:43)
[2021-12-25] MEDS: levETIRAcetam 250 MG TABLET PO SCH ×2 (10:43→22:52)
[2021-12-25] MEDS: METHOCARBAMOL 500 MG TABLET PO PRN (10:49)
[2021-12-25] MEDS: IBUPROFEN 600 MG TABLET (FP) PO PRN (10:49)
[2021-12-25 11:30] LABS: HEMOGLOBIN 13.4 GM/dL (11.7-16.9); MCH 29.1 pg (25.7-33.7); MCHC 34.3 g/dl (32.0-35.9); MEAN CELL VOLUME 84.9 fl (80-96); MEAN PLT VOLUME 8.7 fl (7.5-11.1); PLATELET COUNT 178 10^3/uL (134-434); RBC 4.59 M/mm3 (4.00-5.60); WHITE BLOOD COUNT 6.4 K/mm3 (4.0-10.0)
[2021-12-25 11:33] LABS: CALCIUM 8.8 mg/dL (8.5-10.1)
[2021-12-25 11:34] LABS: ALBUMIN 3.2 g/dl (3.4-5.0); BLOOD UREA NITROGEN 10.8 mg/dL (7-18)
[2021-12-25 11:37] LABS: CREATININE 0.8 mg/dL (0.55-1.3)
[2021-12-25 11:38] LABS: TOT PROT 6.6 g/dl (6.4-8.2)
[2021-12-25 11:39] LABS: BILIRUBIN,TOTAL 0.7 mg/dL (0.2-1)
[2021-12-25] MEDS: THIAMINE HCL 100 MG TABLET (FP) PO SCH (22:51)
[2021-12-26] MEDS ORDERED: methaDONE HCL 10 MG TABLET PO SCH (06:00)
[2021-12-26] MEDS ORDERED: methaDONE HCL 10 MG TABLET PO ONE (06:00)
[2021-12-26] MEDS: chlordiazePOXIDE HCL 25 MG CAPSULE PO SCH ×4 (06:40→22:37)
[2021-12-26] MEDS ORDERED: POTASSIUM CHLORIDE ORAL LIQUID 20 MEQ/15 ML PO ONE (09:30)
[2021-12-26] MEDS: PRENATAL VITAMINS W/ FOLIC ACID TABLET (FP) PO SCH (10:35)
[2021-12-26] MEDS: levETIRAcetam 250 MG TABLET PO SCH ×2 (10:36→22:35)
[2021-12-26] MEDS: METHOCARBAMOL 500 MG TABLET PO PRN (17:27)
[2021-12-26] MEDS: IBUPROFEN 600 MG TABLET (FP) PO PRN (17:28)
[2021-12-26] MEDS: MELATONIN 5 MG TABLETS PO PRN (22:37)
[2021-12-26] MEDS: THIAMINE HCL 100 MG TABLET (FP) PO SCH (22:37)
[2021-12-27] MEDS ORDERED: chlordiazePOXIDE HCL 10 MG CAPSULE PO PRN
[2021-12-27] MEDS: METHOCARBAMOL 500 MG TABLET PO PRN (03:00)
[2021-12-27] MEDS: chlordiazePOXIDE HCL 10 MG CAPSULE PO SCH ×4 (06:15→22:45)
[2021-12-27] MEDS: methaDONE HCL 10 MG TABLET PO SCH (06:16)
[2021-12-27] MEDS: levETIRAcetam 250 MG TABLET PO SCH ×2 (10:49→22:46)
[2021-12-27] MEDS: PRENATAL VITAMINS W/ FOLIC ACID TABLET (FP) PO SCH (10:55)
[2021-12-27] MEDS ORDERED: MICONAZOLE NITRATE 28 GM TUBE TP SCH (11:00)
[2021-12-27] MEDS: THIAMINE HCL 100 MG TABLET (FP) PO SCH (22:45)
[2021-12-27] MEDS: MELATONIN 5 MG TABLETS PO PRN (22:45)
[2021-12-27] MEDS: MICONAZOLE NITRATE 14 GM/TUBE TUBE TP SCH (22:47)
[2021-12-28] MEDS: methaDONE HCL 10 MG TABLET PO SCH (05:32)
[2021-12-28] MEDS: METHOCARBAMOL 500 MG TABLET PO PRN ×2 (05:32→22:27)
[2021-12-28] MEDS: chlordiazePOXIDE HCL 10 MG CAPSULE PO SCH ×2 (05:33→17:33)
[2021-12-28] MEDS: MICONAZOLE NITRATE 14 GM/TUBE TUBE TP SCH ×2 (10:47→22:28)
[2021-12-28] MEDS: levETIRAcetam 250 MG TABLET PO SCH ×2 (10:47→22:28)
[2021-12-28] MEDS: PRENATAL VITAMINS W/ FOLIC ACID TABLET (FP) PO SCH (10:47)
[2021-12-28] MEDS: THIAMINE HCL 100 MG TABLET (FP) PO SCH (22:27)
[2021-12-29] MEDS ORDERED: chlordiazePOXIDE HCL 10 MG CAPSULE PO ONE (05:00)
[2021-12-29] MEDS: methaDONE HCL 10 MG TABLET PO SCH (06:02)
[2021-12-29 06:41] VITALS: BP 101/53; PULSE 121; RESP 16; TEMP 97.3
[2021-12-29] MEDS: levETIRAcetam 250 MG TABLET PO SCH (09:42)
[2021-12-29] MEDS: PRENATAL VITAMINS W/ FOLIC ACID TABLET (FP) PO SCH (09:43)
[2021-12-29] MEDS: MICONAZOLE NITRATE 14 GM/TUBE TUBE TP SCH (09:43)
== END 2021-12-29 10:45 | disposition home or self-care (01) | DRG 773 ==
LOC: YASAS 15:05 → Y6N 18:03
PROVIDERS: ADMIT Allergy & Immunology; ATTEND Surgery
PROC: HZ2ZZZZ Detoxification Services for Substance Abuse Treatment (ICD-10-PCS; principal; 2021-12-24)
DX: F10.230 Alcohol dependence with withdrawal, uncomplicated (principal); F11.20 Opioid dependence, uncomplicated; F14.20 Cocaine dependence, uncomplicated; F15.20 Other stimulant dependence, uncomplicated; F17.210 Nicotine dependence, cigarettes, uncomplicated; G62.9 Polyneuropathy, unspecified; G40.909 Epilepsy, unspecified, not intractable, without status epilepticus; R21 Rash and other nonspecific skin eruption; Z86.19 Personal history of other infectious and parasitic diseases; Z86.718 Personal history of other venous thrombosis and embolism; Z86.711 Personal history of pulmonary embolism
CPT/HCPCS: 36415; 80053; 85027; 86780; C9803-CS; U0003; U0005

== ENCOUNTER 2022-01-22 16:27 | Inpatient (IN) | payer OTHER ==
[2022-01-22 17:50] VITALS: BMI 27.8
[2022-01-22] MEDS ORDERED: P-EPHED 60MG/TRIPROLIDI 2.5MG TABLET PO PRN (18:03)
[2022-01-22] MEDS ORDERED: ONDANSETRON *ODT* 4 MG TABLET SL PRN (18:03)
[2022-01-22] MEDS ORDERED: MAGNESIUM HYDROX 2400MG/30ML ORAL SUSPENSION 30 ML CUP PO PRN (18:03)
[2022-01-22] MEDS ORDERED: LOPERAMIDE HCL 2 MG CAPSULE PO PRN (18:03)
[2022-01-22] MEDS ORDERED: hydrOXYzine PAMOATE 25 MG CAPSULE (FP) PO PRN (18:03)
[2022-01-22] MEDS ORDERED: METHOCARBAMOL 500 MG TABLET PO PRN (18:03)
[2022-01-22] MEDS ORDERED: guaiFENesin 200 MG/10 ML 10 ML UNIT-DOSE CUPS PO PRN (18:03)
[2022-01-22] MEDS ORDERED: NICOTINE POLACRILEX 2 MG GUM BUC PRN (18:03)
[2022-01-22] MEDS ORDERED: IBUPROFEN 400 MG TABLET (FP) PO PRN (18:03)
[2022-01-22] MEDS ORDERED: DICYCLOMINE HCL 10 MG CAPSULE PO PRN (18:03)
[2022-01-22] MEDS ORDERED: ACETAMINOPHEN 325 MG TABLET (FP) PO PRN ×2 (18:03)
[2022-01-22] MEDS ORDERED: NALOXONE HCL (KLOXXADO) 8 MG SPRAY NS PRN (18:03)
[2022-01-22] MEDS ORDERED: IBUPROFEN 600 MG TABLET (FP) PO PRN (18:03)
[2022-01-22] MEDS ORDERED: POLYETHYLENE GLYCOL (HEALTHYLAX) 3350 17 GM PACKET PO PRN (18:03)
[2022-01-22] MEDS ORDERED: BISMUTH SUBSALICYLATE 524 MG/30 ML PO PRN (18:03)
[2022-01-22] MEDS ORDERED: MAG HYDROX/AL HYDROX/SIMETH 30 ML UNIT-DOSE CUP PO PRN (18:03)
[2022-01-22] MEDS ORDERED: BENZOCAINE/MENTHOL (CHLORASEPTIC ) LOZENGE MM PRN (18:03)
[2022-01-22] MEDS ORDERED: diazePAM 5 MG TABLET PO PRN (18:05)
[2022-01-22] MEDS: THIAMINE HCL 100 MG TABLET (FP) PO SCH (22:13)
[2022-01-23] MEDS: PRENATAL VITAMINS W/ FOLIC ACID TABLET (FP) PO SCH (10:24)
[2022-01-23] MEDS ORDERED: levETIRAcetam XR 750 MG TAB PO SCH (12:45)
[2022-01-23] MEDS ORDERED: methaDONE HCL 10 MG TABLET PO ONE (13:30)
[2022-01-23] MEDS: THIAMINE HCL 100 MG TABLET (FP) PO SCH (22:19)
[2022-01-24 08:51] VITALS: RESP 18
[2022-01-24] MEDS: diazePAM 5 MG TABLET PO SCH ×3 (10:08→22:39)
[2022-01-24] MEDS: PRENATAL VITAMINS W/ FOLIC ACID TABLET (FP) PO SCH (10:08)
[2022-01-24] MEDS: methaDONE HCL 10 MG TABLET PO SCH (10:08)
[2022-01-24] MEDS: THIAMINE HCL 100 MG TABLET (FP) PO SCH (22:39)
[2022-01-25] MEDS: methaDONE HCL 10 MG TABLET PO SCH (05:52)
[2022-01-25] MEDS ORDERED: diazePAM 5 MG TABLET PO SCH (06:00)
[2022-01-25 06:13] VITALS: BP 106/74; PULSE 57; TEMP 97.5
[2022-01-26] MEDS ORDERED: diazePAM 5 MG TABLET PO SCH (06:00)
[2022-01-27] MEDS ORDERED: diazePAM 5 MG TABLET PO ONE (06:00)
== END 2022-01-25 09:20 | disposition left against medical advice (07) | DRG 770 ==
LOC: YASAS 16:27 → Y3N 18:11
PROVIDERS: ADMIT Allergy & Immunology; ATTEND Surgery
PROC: HZ2ZZZZ Detoxification Services for Substance Abuse Treatment (ICD-10-PCS; principal; 2022-01-22)
DX: F10.230 Alcohol dependence with withdrawal, uncomplicated (principal); F11.20 Opioid dependence, uncomplicated; F14.20 Cocaine dependence, uncomplicated; F17.210 Nicotine dependence, cigarettes, uncomplicated; Z86.19 Personal history of other infectious and parasitic diseases
CPT/HCPCS: C9803-CS; U0003; U0005

== ENCOUNTER 2022-03-13 13:37 | Inpatient (IN) | payer OTHER ==
[2022-03-13 14:08] VITALS: BMI 37.9
[2022-03-13] MEDS ORDERED: BENZOCAINE/MENTHOL (CHLORASEPTIC ) LOZENGE MM PRN (14:50)
[2022-03-13] MEDS ORDERED: LOPERAMIDE HCL 2 MG CAPSULE PO PRN (14:50)
[2022-03-13] MEDS ORDERED: NALOXONE HCL (KLOXXADO) 8 MG SPRAY NS PRN (14:50)
[2022-03-13] MEDS ORDERED: hydrOXYzine PAMOATE 25 MG CAPSULE (FP) PO PRN (14:50)
[2022-03-13] MEDS ORDERED: ONDANSETRON *ODT* 4 MG TABLET SL PRN (14:50)
[2022-03-13] MEDS ORDERED: DICYCLOMINE HCL 10 MG CAPSULE PO PRN (14:50)
[2022-03-13] MEDS ORDERED: MAGNESIUM HYDROX 2400MG/30ML ORAL SUSPENSION 30 ML CUP PO PRN (14:50)
[2022-03-13] MEDS ORDERED: NICOTINE 10 MG CARTRIDGE (INHALER) IH PRN (14:50)
[2022-03-13] MEDS ORDERED: IBUPROFEN 600 MG TABLET (FP) PO PRN (14:50)
[2022-03-13] MEDS ORDERED: MAG HYDROX/AL HYDROX/SIMETH 30 ML UNIT-DOSE CUP PO PRN (14:50)
[2022-03-13] MEDS ORDERED: BISMUTH SUBSALICYLATE 262 MG/15 ML BTL PO PRN (14:50)
[2022-03-13] MEDS ORDERED: POLYETHYLENE GLYCOL (HEALTHYLAX) 3350 17 GM PACKET PO PRN (14:50)
[2022-03-13] MEDS ORDERED: ACETAMINOPHEN 325 MG TABLET (FP) PO PRN ×2 (14:50)
[2022-03-13] MEDS ORDERED: METHOCARBAMOL 500 MG TABLET PO PRN (14:50)
[2022-03-13] MEDS ORDERED: IBUPROFEN 400 MG TABLET (FP) PO PRN (14:50)
[2022-03-13] MEDS ORDERED: LORazepam 1 MG TABLET PO PRN (15:06)
[2022-03-13] MEDS: LORazepam 2 MG TABLET PO SCH ×2 (17:59→22:52)
[2022-03-13] MEDS: MELATONIN 5 MG TABLETS PO SCH (22:52)
[2022-03-13] MEDS: THIAMINE HCL 100 MG TABLET (FP) PO SCH (22:52)
[2022-03-14] MEDS: LORazepam 2 MG TABLET PO SCH ×4 (07:43→22:32)
[2022-03-14] MEDS: PRENATAL VITAMINS W/ FOLIC ACID TABLET (FP) PO SCH (10:41)
[2022-03-14 12:31] LABS: HEMATOCRIT 35.1 % (35.4-49); HEMOGLOBIN 11.7 GM/dL (11.7-16.9); MCH 28.4 pg (25.7-33.7); MCHC 33.4 g/dl (32.0-35.9); MEAN PLT VOLUME 9.5 fl (7.5-11.1); PLATELET COUNT 163 10^3/uL (134-434); RBC 4.13 M/mm3 (4.00-5.60); RDW 16.1 % (11.9-15.9); WHITE BLOOD COUNT 8.6 K/mm3 (4.0-10.0)
[2022-03-14 12:44] LABS: BLOOD UREA NITROGEN 10.2 mg/dL (7-18); CALCIUM 8.3 mg/dL (8.5-10.1)
[2022-03-14 12:45] LABS: ALBUMIN 3.2 g/dl (3.4-5.0)
[2022-03-14 12:48] LABS: CREATININE 0.7 mg/dL (0.55-1.3)
[2022-03-14 12:49] LABS: BILIRUBIN,TOTAL 0.8 mg/dL (0.2-1); TOT PROT 6.5 g/dl (6.4-8.2)
[2022-03-14 13:29] LABS: HIV INTERPRETATION NEGATIVE (NEGATIVE)
[2022-03-14] MEDS: MELATONIN 5 MG TABLETS PO SCH (22:32)
[2022-03-14] MEDS: THIAMINE HCL 100 MG TABLET (FP) PO SCH (22:32)
[2022-03-14] MEDS: traZODone HCL 100 MG TABLET (FP) PO SCH (22:34)
[2022-03-15] MEDS: LORazepam 1 MG TABLET PO SCH ×4 (06:27→22:29)
[2022-03-15] MEDS ORDERED: methaDONE HCL 10 MG TABLET PO ONE (09:34)
[2022-03-15] MEDS: PRENATAL VITAMINS W/ FOLIC ACID TABLET (FP) PO SCH (10:23)
[2022-03-15] MEDS: MELATONIN 5 MG TABLETS PO SCH (22:28)
[2022-03-15] MEDS: traZODone HCL 100 MG TABLET (FP) PO SCH (22:29)
[2022-03-15] MEDS: THIAMINE HCL 100 MG TABLET (FP) PO SCH (22:29)
[2022-03-16] MEDS ORDERED: LORazepam 0.5 MG TABLET PO PRN
[2022-03-16] MEDS: LORazepam 0.5 MG TABLET PO SCH ×2 (05:53→10:12)
[2022-03-16 06:20] VITALS: BP 105/69
[2022-03-16 09:43] VITALS: PULSE 71; RESP 20; TEMP 97.1
[2022-03-16] MEDS: PRENATAL VITAMINS W/ FOLIC ACID TABLET (FP) PO SCH (10:13)
[2022-03-16] MEDS ORDERED: methaDONE HCL 10 MG TABLET PO SCH (11:15)
[2022-03-17] MEDS ORDERED: LORazepam 0.5 MG TABLET PO ONE (05:00)
== END 2022-03-16 12:15 | disposition left against medical advice (07) | DRG 770 ==
LOC: YASAS 13:37 → Y3N 15:48
PROVIDERS: ADMIT Allergy & Immunology; ATTEND Surgery
PROC: HZ2ZZZZ Detoxification Services for Substance Abuse Treatment (ICD-10-PCS; principal; 2022-03-13)
DX: F11.23 Opioid dependence with withdrawal (principal); F10.230 Alcohol dependence with withdrawal, uncomplicated; F31.9 Bipolar disorder, unspecified; F17.210 Nicotine dependence, cigarettes, uncomplicated; E72.20 Disorder of urea cycle metabolism, unspecified; E83.51 Hypocalcemia; G40.909 Epilepsy, unspecified, not intractable, without status epilepticus; G47.00 Insomnia, unspecified; G62.9 Polyneuropathy, unspecified; R74.01 Elevation of levels of liver transaminase levels; Z62.810 Personal history of physical and sexual abuse in childhood; Z86.718 Personal history of other venous thrombosis and embolism; Z79.01 Long term (current) use of anticoagulants; Z86.711 Personal history of pulmonary embolism; Z56.0 Unemployment, unspecified; Z59.00 Homelessness unspecified
CPT/HCPCS: 36415; 80053; 82140; 85027; 86780; 87389; C9803-CS; U0003; U0005

== ENCOUNTER 2023-05-06 14:36 | Inpatient (IN) | payer OTHER ==
[2023-05-06 16:55] VITALS: BMI 27.8
[2023-05-06] MEDS ORDERED: BENZONATATE 200 MG CAPSULE PO PRN (19:21)
[2023-05-06] MEDS ORDERED: IBUPROFEN 400 MG TABLET (FP) PO PRN (19:21)
[2023-05-06] MEDS ORDERED: NICOTINE POLACRILEX 2 MG GUM BUC PRN (19:21)
[2023-05-06] MEDS ORDERED: POLYETHYLENE GLYCOL (HEALTHYLAX) 3350 17 GM PACKET PO PRN (19:21)
[2023-05-06] MEDS ORDERED: BISMUTH SUBSALICYLATE 524 MG/30 ML PO PRN (19:21)
[2023-05-06] MEDS ORDERED: DICYCLOMINE HCL 10 MG CAPSULE PO PRN (19:21)
[2023-05-06] MEDS ORDERED: NALOXONE HCL 0.4 MG/ML VIAL IM PRN (19:21)
[2023-05-06] MEDS ORDERED: P-EPHED 60MG/TRIPROLIDI 2.5MG TABLET PO PRN (19:21)
[2023-05-06] MEDS ORDERED: guaiFENesin 600 MG TABLET.ER (FP) PO PRN (19:21)
[2023-05-06] MEDS ORDERED: NALOXONE HCL (KLOXXADO) 8 MG SPRAY NS PRN (19:21)
[2023-05-06] MEDS ORDERED: MAG HYDROX/AL HYDROX/SIMETH 30 ML UNIT-DOSE CUP PO PRN (19:21)
[2023-05-06] MEDS ORDERED: BENZOCAINE/MENTHOL (CHLORASEPTIC ) LOZENGE MM PRN (19:21)
[2023-05-06] MEDS ORDERED: MAGNESIUM HYDROX 2400MG/30ML ORAL SUSPENSION 30 ML CUP PO PRN (19:21)
[2023-05-06] MEDS ORDERED: LOPERAMIDE HCL 2 MG CAPSULE PO PRN (19:21)
[2023-05-06] MEDS ORDERED: ONDANSETRON *ODT* 4 MG TABLET SL PRN (19:21)
[2023-05-06] MEDS ORDERED: hydrOXYzine PAMOATE 25 MG CAPSULE (FP) PO ONE (19:54)
[2023-05-06] MEDS: hydrOXYzine PAMOATE 25 MG CAPSULE (FP) PO PRN (19:58)
[2023-05-06] MEDS: METHOCARBAMOL 500 MG TABLET PO PRN (22:19)
[2023-05-06] MEDS: traZODone HCL 50 MG TABLET (FP) PO ONE (22:19)
[2023-05-06] MEDS: THIAMINE HCL 100 MG TABLET (FP) PO SCH (22:19)
[2023-05-06] MEDS: MELATONIN 5 MG TABLETS PO SCH (22:19)
[2023-05-06] MEDS: BACITRACIN 0.9 GM PACKET TP SCH (22:19)
[2023-05-06] MEDS ORDERED: cloNIDine HCL 0.1 MG TABLET PO PRN (23:28)
[2023-05-06] MEDS: methaDONE HCL 10 MG TABLET (FOR DETOX USE ONLY) PO ONE (23:49)
[2023-05-07] MEDS: VITAMINS A AND D TOPICAL OINTMENT TP SCH (00:13)
[2023-05-07] MEDS: PRENATAL VITAMINS W/ FOLIC ACID TABLET (FP) PO SCH (09:58)
[2023-05-07 11:46] LABS: HEMATOCRIT 35.9 % (35.4-49); HEMOGLOBIN 12.3 GM/dL (11.7-16.9); MCH 29.6 pg (25.7-33.7); MCHC 34.3 g/dl (32.0-35.9); MEAN CELL VOLUME 86.3 fl (80-96); MEAN PLT VOLUME 9.8 fl (7.5-11.1); PLATELET COUNT 124 10^3/uL (134-434); RBC 4.16 M/mm3 (4.00-5.60); RDW 15.1 % (11.9-15.9); WHITE BLOOD COUNT 6.8 K/mm3 (4.0-10.0)
[2023-05-07 11:50] LABS: CHLORIDE 104 mmol/L (98-107); SODIUM 140 mmol/L (136-145)
[2023-05-07 11:59] LABS: CALCIUM 8.6 mg/dL (8.5-10.1)
[2023-05-07 12:00] LABS: CO2 33 mmol/L (21-32); GLUCOSE,RANDOM 109 mg/dL (74-106)
[2023-05-07 12:03] LABS: CREATININE 0.8 mg/dL (0.55-1.3); SGOT/AST 25 U/L (15-37); SGPT/ALT 18 U/L (13-61)
[2023-05-07 12:05] LABS: BILIRUBIN,TOTAL 0.5 mg/dL (0.2-1); TOT PROT 5.6 g/dl (6.4-8.2)
[2023-05-07 12:06] LABS: ALK PHOS 65 U/L (45-117)
[2023-05-07 12:08] LABS: ANION GAP 3 mmol/L (4-13); POTASSIUM 2.8 mmol/L (3.5-5.1)
[2023-05-07] MEDS: POTASSIUM CHLORIDE ORAL LIQUID 20 MEQ/15 ML PO ONE (13:01)
[2023-05-07] MEDS: POTASSIUM CHLORIDE ORAL LIQUID 20 MEQ/15 ML PO SCH (23:37)
[2023-05-08] MEDS: methaDONE HCL 10 MG TABLET (FOR DETOX USE ONLY) PO ONE (09:51)
[2023-05-09] MEDS: diazePAM 5 MG TABLET PO PRN (10:07)
[2023-05-09] MEDS: IBUPROFEN 600 MG TABLET (FP) PO PRN (10:08)
[2023-05-09] MEDS: ACETAMINOPHEN 325 MG TABLET (FP) PO PRN (13:29)
[2023-05-09 21:08] VITALS: RESP 16
[2023-05-09] MEDS: MELATONIN 5 MG TABLETS PO SCH (22:54)
[2023-05-10 09:19] VITALS: BP 127/75; PULSE 66; TEMP 97.1
[2023-05-10] MEDS: methaDONE HCL 10 MG TABLET (FOR DETOX USE ONLY) PO ONE (09:37)
== END 2023-05-10 11:52 | disposition home or self-care (01) | DRG 773 ==
LOC: YASAS 14:36 → Y6N 19:26
PROVIDERS: ADMIT Allergy & Immunology; ATTEND Surgery
PROC: HZ2ZZZZ Detoxification Services for Substance Abuse Treatment (ICD-10-PCS; principal; 2023-05-06)
DX: F11.23 Opioid dependence with withdrawal (principal); F17.210 Nicotine dependence, cigarettes, uncomplicated; E87.6 Hypokalemia; G47.00 Insomnia, unspecified; B35.3 Tinea pedis; R79.89 Other specified abnormal findings of blood chemistry; Z86.19 Personal history of other infectious and parasitic diseases; Z59.02 Unsheltered homelessness
CPT/HCPCS: 36415; 80053; 80305; 80307; 84132; 85027; 86780; 87635; 87811; 93005; 93010